=== PATIENT | female | born 1955 | race Caucasian/White ===

== ENCOUNTER → 2017-01-28 11:06 | Outpatient (CLI) | payer BC ==
--- NOTE | ~2017-01-28 | HEMODYNAMI ---
PATIENT:MURPHY PRADHAN MEDICAL RECORD: [id number] : 53 LOCATION:[facility] ADMISSION DATE: 01/28/17 Generatedon:01/28/201714:45 Patient name: MURPHY PRADHAN Patient #: [id number] SSN: : 1955 Date of study: 01/28/2017 Page: Of Hemodynamic Procedure Report Patient Data Patient Demographics Procedure consent was obtained First Name: MURPHY Gender: Female Last Name: CAROLYNN : 1955 Middle Initial: DARIA Age: 61 year(s) Patient #: [id number] Race: Unknown Additional ID: [id number] Contact details [address]: [address] [place] [address] [facility] State: [place] City: [place] Zip code: [address] Admission Admission Data Admission Date: 01/28/2017 Admission Time: 11:06 Procedure Procedure Types Cath Procedure Diagnostic Procedure LHC LHC w/Coronaries PCI Procedure SVG-BMS/APURVA Initial Miscellaneous Procedures Moderate Sedation up to 15 minutes Procedure Description Procedure Date Procedure Date: 01/28/2017 Procedure Start Time: 14:05 Procedure End Time: 14:40 Procedure Staff Name Function Morales Rojas MD Performing Physician Anabella Moreland RT Scrub Michael Barahona RN Nurse Amrita House RT Monitor Procedure Data Cath Procedure Fluoroscopy Diagnostic fluoroscopy Total fluoroscopy Time: 8.7 time: 8.7 min min Diagnostic fluoroscopy Total fluoroscopy dose: dose: 1776 mGy 1776 mGy Entry Location Entry Primary Successful Side Size Upsize Upsize Entry Closure Succes sful Closure Location (Fr) 1 (Fr) 2 (Fr) Remarks Device Remarks Femoral Right 5 Fr Exoseal artery Estimated blood loss: 10 ml Diagnostic catheters Device Type Used For End Catheter Placement Cordis 5Fr JL 4.0 Procedure Catheter (MP) Cordis 5Fr 3DRC Catheter Procedure (MP) Diagnostic Infinity 5Fr Procedure AR MOD Catheter Diagnostic Infinity 5Fr Procedure IM catheter Cordis 5Fr Pigtail Procedure Catheter (MP) Procedure Complications No complications Procedure Medications Medication Administration Route Dosage Oxygen NC 2 l/min Heparin Flush Bag added to field 2 bags (1000units/500ml NS) 0.9% NaCl I.V. 100 ml/hr Fentanyl I.V. 50 mcg Versed I.V. 1 mg Fentanyl I.V. 50 mcg Versed I.V. 1 mg Fentanyl I.V. 50 mcg Versed I.V. 1 mg Fentanyl I.V. 50 mcg Versed I.V. 1 mg Heparin Bolus I.V. 49141 units Brilinta P.O. 180 mg Hemodynamics Rest Heart Rate: 94 (bpm) Pressure Samples Time Site Value (mmHg) Purpose Heart Use Rate(bpm) 14:18 LV 135/8,20 Snapshot 94 14:18 AO 132/74(99) Pullback 98 14:18 LV 150/14,30 Pullback 98 Gradients Valve Time Site 1 Site 2 Mean SEP/DFP Peak To Heart Use (mmHg) (sec/min) Peak Rate (mmHg) (bpm) Aortic 14:18 LV AO 15 19 18 98 150/14,30 132/74(99) Calculations Valve P-P Mean Valve Index Valve Source Name Gradient Area Flow (cm2) Aortic 18 15 18 15 Snapshots Pre Cath Intra NCS Post Cath Vital Signs Time Heart Resp SPO2 etCO2 NIBP (mmHg) Rhythm Pain Sedation Rate (ipm) (%) (mmHg) Status Level (bpm) 13:46:57 89 19 100 30.8 144/91(115) NSR 0 (11) 10(A) , No pain 13:51:13 88 17 98 22.5 139/86(118) NSR 0 (11) 10(A) , No pain 13:55:39 91 18 94 35.3 128/65(89) NSR 0 (11) 10(A) , No pain 13:59:55 87 18 96 28.5 133/85(109) NSR 0 (11) 10(A) , No pain 14:04:07 90 18 95 39.1 130/82(101) NSR 0 (11) 10(A) , No pain 14:08:23 87 17 96 41.2 130/77(102) NSR 0 (11) 9(A) , No pain 14:12:35 93 16 96 41.3 130/81(105) NSR 0 (11) 9(A) , No pain 14:16:53 96 17 95 34.5 133/78(109) NSR 0 (11) 9(A) , No pain 14:21:11 97 16 94 39.2 125/82(102) NSR 0 (11) 9(A) , No pain 14:25:27 94 18 94 38.3 127/77(98) NSR 0 (11) 9(A) , No pain 14:29:41 96 19 95 38.3 124/86(102) NSR 0 (11) 9(A) , No pain 14:33:53 99 19 94 36.8 138/88(104) NSR 0 (11) 10(A) , No pain 14:38:05 93 17 95 38.3 134/83(101) NSR 0 (11) 10(A) , No pain Medications Time Medication Route Dose Verified Delivered Reason Notes Effectiveness by by 13:46:35 Oxygen NC 2 Morales Michael Per physician l/min Bob Barahona RN 13:46:45 Heparin Flush added 2 Morales Michael used for Bag to bags Bob Barahona rn procedure (1000units/500ml field NS) 13:46:54 0.9% NaCl I.V. 100 Morales Michael Per physician ml/hr Bob Barahona RN 14:00:14 Fentanyl I.V. 50 Morales Michael for sedation mcg Bob Barahona RN 14:00:21 Versed I.V. 1 mg Morales Michael for sedation Bob Barahona RN 14:04:04 Fentanyl I.V. 50 Morales Michael for sedation mcg Bob Barahona RN 14:04:07 Versed I.V. 1 mg Morales Michael for sedation Bob Barahona RN 14:06:27 Fentanyl I.V. 50 Morales Michael for sedation mcg Bob Barahona RN 14:06:30 Versed I.V. 1 mg Morales Michael for sedation Bob Barahona RN 14:22:44 Fentanyl I.V. 50 Morales Michael for sedation mcg Bob Barahona RN 14:22:47 Versed I.V. 1 mg Morales Michael for sedation Bob Barahona RN 14:22:57 Heparin [place]us [place].V. 06503 Morales Michael for units Bob Barahona RN anticoagulation 14:41:41 Brilinta P.O. 180 Morales Rodriguez for mg Bob Barahona RN antiplatelet therapy Procedure Log Time Note 13:26:46 Michael Barahona RN sent for patient. Start room use. 13:30:03 Diagnostic Cath Status : Elective 13:36:47 Time tracking: Regular hours 13:36:53 Plan of Care:Hemodynamics will remain stable., Cardiac rhythm will remain stable., Comfort level will be maintained., Respiratory function will remain adequate., Patient/ family verbilizes understanding of procedure., Procedure tolerated without complication., Recovers from procedure without complications.. 13:37:59 Patient received from Pre/Post Procedure Room to CCL 2 Alert and oriented. Tansferred to table in Supine position. 13:38:01 Warm blankets applied, and berto hugger turned on for patient comfort. 13:38:02 Correct patient and procedure confirmed by team. 13:38:08 Signed procedure consent form obtained from patient. 13:38:29 H&P Date Dictated: 01/22/2017 Within 30 days and on chart.. 13:38:31 Pre-procedure instructions explained to patient. 13:38:33 Family in waiting room. 13:38:36 Patient NPO since Midnight. 13:45:44 Vital chart was started 13:46:35 Oxygen 2 l/min NC was administered by Michael Barahona RN; Per physician; 13:46:45 Heparin Flush Bag (1000units/500ml NS) 2 bags added to field was administered by Michael Barahona RN; used for procedure; 13:46:54 0.9% NaCl 100 ml/hr I.V. was administered by Michael Barahona RN; Per physician; 13:53:04 Is the patient allergic to Iodine/contrast media? No. 13:53:05 Was the patient premedicated? Yes 13:53:06 Is patient on blood thinner?No 13:53:08 Patient diabetic? Yes. 13:53:10 If diabetic: On Metformin? Yes 13:53:14 If on Metformin: Last Dose? 01/26/2017 13:53:25 Snore? Yes 13:53:28 Sleep apnea? No 13:53:42 Dentures? No ? 13:53:49 Patient pain scale 0/10 ?. 13:54:02 IV patent on arrival in left forearm with 0.9% NaCl at [facility]. 13:54:10 Lab results completed and on chart. 13:54:16 Right groin area was prepped with chlora-prep and draped in sterile fashion 13:54:18 Alarms reviewed by R. N. 13:54:19 Sharps counted by scrub and verified by R.N. 13:54:21 Physician paged 13:58:53 Physician arrived 13:58:55 --------ALL STOP TIME OUT------ 13:58:56 Final Timeout: patient, procedure, and site verified with staff and physician. All members of the team are in agreement. 13:59:01 Right groin site verified by team. 13:59:05 Sedation plan: IV Moderate Sedation Versed, Fentanyl 13:59:19 Physical assessment completed. ASA score P 2 - A patient with mild systemic disease as per Morales Rojas MD. 14:00:14 Fentanyl 50 mcg I.V. was administered by Michael Barahona RN; for sedation; 14:00:21 Versed 1 mg I.V. was administered by Michael Barahona RN; for sedation; 14:04:04 Fentanyl 50 mcg I.V. was administered by Michael Barahona RN; for sedation; 14:04:07 Versed 1 mg I.V. was administered by Michael Barahona RN; for sedation; 14:04:49 Zero performed for pressure channel P1 14:05:27 Procedure started. 14:05:28 Full Disclosure recording started 14:05:54 Local anesthetic to right femoral artery with Lidocaine 2% by Morales Rojas MD.INITIAL ACCESS ONLY 14:06:14 A 5 Fr sheath was inserted into the Right Femoral artery 14:06:27 Fentanyl 50 mcg I.V. was administered by Michael Barahona RN; for sedation; 14:06:30 Versed 1 mg I.V. was administered by Michael Barahona RN; for sedation; 14:07:46 Use device set Femoral Dx 14:07:48 Acist Syringe opened to sterile field. 14:07:48 Bag Decanter opened to sterile field. 14:07:49 Medline Cath Pack opened to sterile field. 14:07:49 Terumo 5Fr [place] Sheath opened to sterile field. 14:07:49 St Umberto 260cm J .035 wire opened to sterile field. 14:07:51 Acist Hand Control opened to sterile field. 14:07:51 Acist Manifold opened to sterile field. 14:07:52 Diagnostic Infinity 5Fr Multipack catheter opened to sterile field. 14:07:53 Tegaderm 4 x 4 opened to sterile field. 14:08:09 A Cordis 5Fr JL 4.0 Catheter (MP) was advanced over the wire and used for Procedure. 14:08:47 LCA angiography performed. 14:10:06 Catheter removed. 14:10:20 A Cordis 5Fr 3DRC Catheter (MP) was advanced over the wire and used for Procedure. 14:10:38 RCA angiography performed. 14:11:07 SVG to RCA angiography performed. 14:12:48 Catheter removed. 14:13:08 A Diagnostic Infinity 5Fr AR MOD Catheter was advanced over the wire and used for Procedure. 14:14:11 Catheter removed. 14:16:03 A Diagnostic Infinity 5Fr IM catheter was advanced over the wire and used for Procedure. 14:16:09 QUIÑONES to LAD angiography performed. 14:17:58 A Cordis 5Fr Pigtail Catheter (MP) was advanced over the wire and used for Procedure. 14:18:35 EF : 50 % 14:18:44 Sharif BMW [place] 2 J-tip 300cm 0.014 guide wir opened to sterile field. 14:18:45 [employer] BasixCompak Inflation Kit opened to sterile field. 14:18:46 Terumo 6Fr [place] Sheath opened to sterile field. 14:18:49 Proceeding to intervention. 14:19:30 Medtronic Launcher 6Fr AR 1.0 guide catheter opened to sterile field. 14:19:40 6 Fr AR1 guide catheter was inserted over the wire 14:19:46 BMW wire advanced. 14:22:44 Fentanyl 50 mcg I.V. was administered by Michael Barahona RN; for sedation; 14:22:47 Versed 1 mg I.V. was administered by Michael Barahona RN; for sedation; 14:22:57 Heparin Bolus 56184 units I.V. was administered by Michael Barahona RN; for anticoagulation; 14:23:36 High Pressure Extension Tubing (Rojas) opened to sterile field. 14:25:37 Inflation number: 1 A Euphora 3.0 x 20 Balloon was prepped and advanced across the Aorta Right -> Prox RCA, then inflated to 10 KIM for 0:20 (min:sec). 14:26:42 Inflation number: 2 The Euphora 3.0 x 20 Balloon was reinflated across the Aorta Right -> Prox RCA, to 12 KIM for 0:35 (min:sec). 14:28:03 Inflation number: 3 The Euphora 3.0 x 20 Balloon was reinflated across the Aorta Right -> Prox RCA, to 14 KIM for 0:37 (min:sec). 14:30:58 Inflation number: 4 The Euphora 3.0 x 20 Balloon was reinflated across the Aorta Right -> Prox RCA, to 16 KIM for 0:35 (min:sec). 14:32:34 Balloon removed over the wire. 14:34:58 Inflation Number: 5 A Lewellen OTW 3.5 x 18 stent was prepped and advanced across the Aorta Right -> Prox RCA. The stent was deployed at 13 KIM for 0:24 (min:sec). 14:35:46 Stent catheter was removed intact over wire. 14:35:47 Wire removed. 14:35:48 Guide catheter removed. 14:36:15 Sheath removed intact; hemostasis achieved with Exoseal to the Right Femoral artery. 14:36:20 Procedure ended.(Physican Out) 14:36:33 Fluoroscopy time 08.70 minutes. 14:37:19 Fluoroscopy dose: 1776 mGy 14:37:19 Flurop Dose total: 1776 14:37:27 Contrast amount:Isovue 300 8.7ml. 14:37:44 Cordis 6Fr Exoseal opened to sterile field. 14:38:30 Insertion/operative site no bleeding no hematoma. 14:38:38 Post right femoral artery:stable 14:38:43 Post Procedure Pulses reassessed and unchanged 14:38:46 Post-procedure physical assessment completed. ASA score P 2 - A patient with mild systemic disease as per Morales Rojas MD. 14:38:50 Post procedure rhythm: unchanged. 14:38:54 Estimated blood loss: 10 ml 14:38:56 Post procedure instruction explained to patient.Patient verbalizes understanding. 14:39:01 Patient needs reinforcement of post procedure teaching. 14:39:28 Procedure type changed to Cath procedure, Diagnostic procedure, LHC, LHC w/Coronaries, PCI procedure, SVG-BMS/APURVA Initial, Miscellaneous Procedures, Moderate Sedation up to 15 minutes 14:39:31 Procedure and supply charges have been captured, reviewed, submitted and are correct. 14:40:15 Procedure Complication : No complications 14:40:20 Vital chart was stopped 14:40:33 See physician's report for complete and final results. 14:40:38 Report given to Pre/Post Procedure Room. 14:40:45 Patient transfered to Pre/Post Procedure Room with Stretcher. 14:40:50 Procedure ended. 14:40:50 Full Disclosure recording stopped 14:40:55 End room use (Document Last) 14:41:15 ACC-PCI Only Patient was given prescriptions, or instructed by Morales Rojas MD to start/continue the following medications upon discharge: Plavix 14:41:41 Brilinta 180 mg P.O. was administered by Michael Barahona RN; for antiplatelet therapy; Intervention Summary Intervention Notes Time ActionType Lesion and Equipment Action# Pressure Duration Attributes Used 14:25:37 Inflate Aorta Right Euphora 1 10 00:20 balloon -> Prox RCA 3.0 x 20 Balloon 14:26:42 Reinflate Aorta Right Euphora 2 12 00:35 balloon -> Prox RCA 3.0 x 20 Balloon 14:28:03 Reinflate Aorta Right Euphora 3 14 00:37 balloon -> Prox RCA 3.0 x 20 Balloon 14:30:58 Reinflate Aorta Right Euphora 4 16 00:35 balloon -> Prox RCA 3.0 x 20 Ball[address] 14:34:58 [address] stent Aorta Right David OTW 5 13 00:24 -> Prox RCA 3.5 x 18 stent Device Usage Item Name Manufacture Quantity Catalog Hospital Part Current Minima l Lot# / Number Charge Number Stock Stock Serial# Code [facility] 44831 [id number] 805228 826500 20 Syringe [employer] Inc Bag Microtek 1 2002S 633159 16283 492878 5 T[employer] Medline Cardinal 1 [id number] 306381 77605 846113 5 Brainsway Terumo 5Fr Terumo 1 [id number] 626556 694329 102289 [address] Umberto 1 888117 476189 488567 336447 30 260cm J .035 wire Acist Hand Acist 1 63228 345764 968465 136972 5 Control [employer] Systems Inc Acist Acist 1 02784 480254 793743 407349 5 Manifold Medical Systems Inc Diagnostic Cardinal 1 [id number] 222635 27850 484041 30 Infinity Health 5Fr Multipack catheter Tegaderm 4 3M 1 1626W 406478 027149 742568 5 x 4 Cordis 5Fr Cardinal 1 [id number] 5 JL 4.0 Health Catheter (MP) Cordis 5Fr Cardinal 1 165537 5 3DRC Health Catheter (MP) Diagnostic Cardinal 1 [id number] 660372 947556 486003 15 [facility] 5Fr AR MOD Catheter Diagnostic Cardinal 1 [id number] 633671 882413 317589 5 [facility] 5Fr IM catheter Cordis 5Fr Cardinal 1 480671 5 Pigtail Health Catheter (MP) Sharif BMW Sharif 1 [id number] 087127 476149 425767 5 [place] 2 Vascular J-tip 300cm 0.014 guide wir Merit Merit 1 [id number] 873898 720249 803330 15 [employer] Medical Inflation Kit Terumo 6Fr Terumo 1 [id number] 382747 826449 737565 40 [place] Sheath Medtronic Medtronic 1 [id number] 806915 89356 148991 1 Launcher 6Fr AR 1.0 guide catheter High Merit 1 [id number] 191199 48732 129284 10 Pressure Medical Extension Tubing (Rojas) Euphora 3.0 Medtronic 1 [id number] 332289 359811 197645 5 [id number] x 20 Balloon Lewellen OTW Medtronic 1 [id number] 148107 2756925 941162 5 [id number] 3.5 x 18 stent Cordis 6Fr Cardinal 1 [id number] 545411 068386 072225 10 [facility] [employer] Signature Audit [place] Stage Time Signature Unsigned Intra-Procedure 01/28/2017 Amrita House 2:45:31 PM RT(R) Signatures Monitor : Amrita House Signature : RT Date : Time : [facility] [address] [place] [address]
[~2017-01-28 11:06] MED LIST: ASPIRIN 81 MG E81 MG PO; ASPIRIN325 MG PO; BETAPACE 80 MG80 MG PO; BIOTIN5 MG PO; BRILINTA90 MG PO; CHLORASEPTIC S180 ML MM; CINNAMON500 MG PO; CONTRAVE PO; COZAAR50 MG PO; FISH OIL 1,2001 CA1 PO; FOLIC ACID0.8 MG PO; GLUCOPHAGE1000 MG PO; GLUCOPHAGE500 MG; GLUCOPHAGE500 MG PO; K-DUR20 MEQ PO; LASIX40 MG PO; LOPRESSOR25 MG PO; LOSARTAN POTASS25 MG PO; MULTI-DAY VITAM1 TAB PO; NORCO 5/325 TAB1 TA1; PLAVIX75 MG PO; PRAVACHOL20 MG PO; PROTONIX40 MG PO; VITAMIN D2000 UNIT PO
[2017-01-28 11:58] LABS: BASOPHILS 0 % (0-2); EOSINOPHILS 0 % (0-7); HEMATOCRIT 36.1 % (36.0-48.0); IMMATURE GRANULOCYTES 0.4 % (0-5); LYMPHOCYTES 7.2 % (15-50); MCHC 33.2 g/dL (31.0-37.0); MCV 84.3 fL (80.0-100.0); MEAN PLATELET VOLUME 9.5 fL (7.4-10.4); MONOCYTES 2.6 % (2-11); NEUTROPHILS 89.8 % (40-80); PLATELET COUNT 232 10x3/uL (130-400); RBC 4.28 10x6/uL (4.00-5.40); RDW 12.9 % (11.5-14.5); WBC 10.7 10x3/uL (4.8-10.8)
[2017-01-28 12:01] VITALS: BP 148/82; BMI 42.3
[2017-01-28 12:10] LABS: ANION GAP 15.4 mmol/L (8-16); CALCIUM 9.1 mg/dL (8.5-10.1); CARBON DIOXIDE 23.6 mmol/L (21.0-32.0); CREATININE - SERUM 1.3 mg/dL (0.6-1.3)
--- NOTE | 2017-01-28 15:00 | NUR ---
1500 RECIEVED TO ROOM VIA STRETCHER FROM INSTRUMENT MAN WITH REPORTS OF ONE STENT TO THE RCA GRAFT. 6 FR EXOSEAL R/GROIN CDI NO BLEEDING NO HEMATOMA NOTED. VSS WITH CHEST PAIN DENIED 1530 RESTING QUIETLY WITH EYES CLOSED VSS R/GROIN CDI NO BLEEDING NO HEMATOMA NOTED.
--- NOTE | 2017-01-28 15:30 | NUR ---
6 FR EXOSEAL R/GROIN CDI NO BLEEDING NO HEMATOMA NOTED. INSTRUCTED PATIENT TO KEEP HEAD FLAT ON PILLOW WITH RLE STRAIGHT. VSS AND CHEST PAIN IS DENIED
--- NOTE | 2017-01-28 16:00 | NUR ---
6 FR EXOSEAL R/GROIN CDI NO BLEEDING NO HEMATOMA NOTED. CHEST PAIN IS DENIED. SANDWICH AND SODA TO BEDSIDE
--- NOTE | 2017-01-28 16:55 | NUR ---
R/GROIN REMAINS CDI NO BLEEDING OR HEMATOMA NOTED PULSES ARE PRESENT AND MARKED. CHEST PAIN IS DENIED. FAMILY AT BEDSIDE
--- NOTE | 2017-01-28 17:43 | NUR ---
REPOSITIONED TO SITTING WITH HOB UP 30 DEGREES R/GROIN CDI NO BLEEDING NO HEMATOMA NOTED.
--- NOTE | 2017-01-28 18:04 | NUR ---
PIV REMOVED WITH DRESSING APPLIED. R/GROIN CDI NO BLEEDING NO HEMATOMA NOTED. VERBAL AND WRITTEN DISCHARGE GONE OVER WITH PATIENT AND FAMILY ALL VERBALIZED UNDERSTANDING. PATIENT UP TO GET DRESSED FOR DISCHARGE HOME
== END | disposition home or self-care (01) ==
LOC: D.CATH 11:06
PROVIDERS: Internal Medicine Cardiovascular Disease
DX: I25.719 Atherosclerosis of autologous vein coronary artery bypass graft(s) with unspecified angina pectoris (principal); I25.119 Atherosclerotic heart disease of native coronary artery with unspecified angina pectoris; T82.855A Stenosis of coronary artery stent, initial encounter; Z01.812 Encounter for preprocedural laboratory examination

== ENCOUNTER 2017-10-07 11:27 | Outpatient (CLI) | payer MEDICAID ==
[~2017-10-07] VITALS: Ht 162.6 cm; Wt 106.8 kg
--- NOTE | ~2017-10-07 | HEMODYNAMI ---
PATIENT:MURPHY PRADHAN MEDICAL RECORD: [id number] : 53 LOCATION:[facility] ADMISSION DATE: 10/07/17 Generatedon:10/07/201715:01 Patient name: MURPHY PRADHAN Patient #: [id number] SSN: [id number] : 1955 Date of study: 10/07/2017 Page: Of Hemodynamic Procedure Report Patient Data Patient Demographics Procedure consent was obtained First Name: MURPHY Gender: Female Last Name: CAROLYNN : 1955 [facility] Initial: DARIA Age: 62 year(s) Patient #: [id number] Race: SSN: [id number] Additional ID: [id number] Contact details [address]: [address] [place] [address] [facility] State: [place] City: [place] Zip code: [address] Admission Admission Data Admission Date: 10/07/2017 Admission Time: 11:27 Arrival Date: 10/07/2017 Arrival Time: 13:30 Admit Source: Other Insurance Payor: Private health insurance Procedure Procedure Types Cath Procedure Diagnostic Procedure C [facility] w/Coronaries w/Grafts Sedation Charges Moderate Sedation up to 15 minutes PCI Procedure AMI/SVG/VARNISHING UNIT TOOL SETTER PTCA or Stent SVG-BMS/APURVA Initial Procedure Description Procedure Date Procedure Date: 10/07/2017 Procedure Start Time: 14:28 Procedure End Time: 14:57 Procedure Staff Name Function Morales Rojas MD Performing Physician Amrita Hosue RT Monitor Anabella Moreland RT Scrub Angel Rosa RN Nurse Procedure Data Cath Procedure Fluoroscopy Diagnostic fluoroscopy Total fluoroscopy Time: 6.2 time: 6.2 min min Diagnostic fluoroscopy Total fluoroscopy dose: dose: 1260 mGy 1260 mGy Contrast Material Contrast Material Type Amount (ml) Isovue 300 103 Entry Location Entry Primary Successful Side Size Upsize Upsize Entry Closure Succes sful Closure Location (Fr) 1 (Fr) 2 (Fr) Remarks Device Remarks Femoral Right 5 Fr 6 Fr Exoseal artery Short Estimated blood loss: 10 ml Diagnostic catheters Device Type Used For End Catheter Placement MULTIPACK JL 4.0 5Fr Procedure catheter DIAGNOSTIC AR MOD 5Fr Catheter ([id number]) DIAGNOSTIC IMT 5Fr Procedure Catheter ([id number]) MULTIPACK Pigtail 5 Fr Ventriculography catheter Procedure Complications No complications Procedure Medications Medication Administration Route Dosage 0.9% NaCl I.V. 100 ml/hr Oxygen etCO2 Nasal cannula 2 l/min Heparin Flush Bag added to field 2 bags (1000units/500ml NS) Lidocaine 2% added to field 20 Versed I.V. 2 mg Fentanyl I.V. 100 mcg Versed I.V. 1 mg Fentanyl I.V. 50 mcg Fentanyl I.V. 50 mcg Heparin Bolus I.V. 22089 units Plavix P.O. 75 mg Hemodynamics Rest Heart Rate: 93 (bpm) Pressure Samples Time Site Value (mmHg) Purpose Heart Use Rate(bpm) 14:39 LV 127/0,11 Snapshot 93 14:40 AO 118/65(90) Pullback 93 14:40 LV 125/0,12 Pullback 93 Gradients Valve Time Site 1 Site 2 Mean SEP/DFP Peak To Heart Use (mmHg) (sec/min) Peak Rate (mmHg) (bpm) Aortic 14:40 LV AO 11 18 7 93 125/0,12 118/65(90) Calculations Valve P-P Mean Valve Index Valve Source Name Gradient Area Flow (cm2) Aortic 7 11 7 11 Snapshots Pre Cath Intra NCS Post Cath Vital Signs Time Heart Resp SPO2 etCO2 NIBP (mmHg) Rhythm Pain Sedation Rate (ipm) (%) (mmHg) Status Level (bpm) 14:15:57 92 39 97 33.6 148/91(118) NSR 0 (11) 10(A) , No pain 14:19:50 89 17 96 36.6 144/90(112) NSR 0 (11) 10(A) , No pain 14:23:42 91 21 92 26.9 141/89(108) NSR 0 (11) 10(A) , No pain 14:27:35 89 18 92 39.6 137/85(114) NSR 0 (11) 10(A) , No pain 14:31:31 89 14 94 11.2 123/82(106) NSR 0 (11) 9(A) , No pain 14:35:55 90 16 93 28.4 128/79(103) NSR 0 (11) 9(A) , No pain 14:39:51 96 19 94 29.2 119/79(100) NSR 0 (11) 9(A) , No pain 14:44:17 91 18 94 34.4 133/76(100) NSR 0 (11) 9(A) , No pain 14:48:14 90 16 92 29.9 137/75(97) NSR 0 (11) 10(A) , No pain 14:52:14 98 13 95 33.7 124/75(94) NSR 0 (11) 10(A) , No pain 14:56:08 92 20 94 30.7 119/75(92) NSR 0 (11) 10(A) , No pain Medications Time Medication Route Dose Verified Delivered Reason Note s Effectiveness by by 14:19:52 0.9% NaCl I.V. 100 Angel Angel Per physician ml/hr Moe Rosa RN RN 14:20:03 Oxygen etCO2 2 Angel Angel Per physician Nasal l/min Moe Rosa cannula RN RN 14:20:16 Heparin Flush added 2 bags Angel Angel used for Bag to Lorigan Lorpepe procedure (1000units/500ml RN RN NS) 14:20:27 Lidocaine 2% added 20ml Angel Angel for local to vial Lorigan Lorigan anesthetic RN RN 14:24:30 Versed I.V. 2 mg Angel Angel for sedation Moe Rosa RN RN 14:25:53 Fentanyl I.V. 100 Angel Angel for sedation mcg Moe Rosa RN RN 14:30:56 Versed I.V. 1 mg Angel Angel for sedation Moe Rosa RN RN 14:31:02 Fentanyl I.V. 50 mcg Angel Angel for sedation Moe Rosa RN RN 14:44:36 Fentanyl I.V. 50 mcg Angel Angel for sedation Moe Rosa RN RN 14:46:18 Heparin Bolus I.V. 10,000 Angel Angel for units Moe Rosa anticoagulation RN RN 14:53:25 Plavix P.O. 75 mg Angel Angel for Moe Rosa antiplatelet RN RN therapy Procedure Log Time Note 14:07:50 Diagnostic Cath Status : Elective 14:08:22 Amrita Harsh RT(R) sent for patient. Start room use. 14:08:23 Time tracking: Regular hours (M-F 7:00 - 5:00) 14:08:26 Plan of Care:Hemodynamics will remain stable., Cardiac rhythm will remain stable., Comfort level will be maintained., Respiratory function will remain adequate., Patient/ family verbilizes understanding of procedure., Procedure tolerated without complication., Recovers from procedure without complications.. 14:08:46 Informed consent obtained and on chart 14:08:54 Admit Source: Other 14:08:56 Arrival Date: 10/07/2017 1:30:00 PM 14:09:10 Insurance Payor : Private health insurance 14:09:17 Patient received from Pre/Post Procedure Room to CCL 2 Alert and oriented. Tansferred to table in Supine position. 14:09:18 Warm blankets applied, and berto hugger turned on for patient comfort. 14:09:18 Correct patient and procedure confirmed by team. 14:09:22 ECG and BP/O2 sat monitors applied to patient. 14:15:08 Vital chart was started 14:15:10 Baseline sample Acquired. 14:15:13 Rhythm: sinus rhythm 14:15:15 Full Disclosure recording started 14:15:18 H&P Date Dictated: 10/07/2017 Within 30 days and on chart., H&P Addendum completed by physician on day of procedure. (MUST COMPLETE FOR ALL OUTPATIENTS). 14:15:20 Pre-procedure instructions explained to patient. 14:15:20 Pre-op teaching completed and patient verbalized understanding. 14:15:22 Family in waiting room. 14:15:25 Patient NPO since Midnight. 14:15:26 Is the patient allergic to Iodine/contrast media? No. 14:15:27 Was the patient premedicated? No 14:15:29 Is patient on blood thinner?Yes 14:15:31 ACC The patient was administered the following blood thiners within the last 24 hours: ACCPlavix 14:19:52 0.9% NaCl 100 ml/hr I.V. was administered by Angel Rosa RN; Per physician; 14:20:03 Oxygen 2 l/min etCO2 Nasal cannula was administered by Angel Rosa RN; Per physician; 14:20:16 Heparin Flush Bag (1000units/500ml NS) 2 bags added to field was administered by Angel Rosa RN; used for procedure; 14:20:27 Lidocaine 2% 20ml vial added to field was administered by Angel Rosa RN; for local anesthetic; 14:20:40 Patient diabetic? Yes. 14:20:42 If diabetic: On Metformin? Yes 14:20:49 If on Metformin: Last Dose? 10/06/2017 14:21:13 Previous problem with sedation/anesthesia? No ? 14:21:15 Snore? Yes 14:21:17 Sleep apnea? No 14:21:30 Airway obstruction? No bronchitis 14:21:38 Patient pain scale 0/10 ?. 14:21:46 IV patent on arrival in left hand with 0.9% NaCl at [facility]. 14:21:51 Lab results completed and on chart. 14:21:56 Right groin area was prepped with chlora-prep and draped in sterile fashion 14:21:57 Alarms reviewed by R. N. 14:21:58 Sharps counted by scrub and verified by R.N. 14:22:00 Physician paged 14:23:05 Physician arrived 14:23:06 --------ALL STOP TIME OUT------ 14:23:07 Final Timeout: patient, procedure, and site verified with staff and physician. All members of the team are in agreement. 14:23:11 Right groin site verified by team. 14:23:15 Physical assessment completed. ASA score P 2 - A patient with mild systemic disease as per Morales Rojas MD. 14:23:19 Sedation plan: IV Moderate Sedation Medication:Versed, Fentanyl 14:23:45 Use device set Femoral Dx 14:23:47 ACIST Syringe (21484) opened to sterile field. 14:23:47 Bag Decanter (2001S) opened to sterile field. 14:23:48 Medline Cath Pack ([id number]) opened to sterile field. 14:23:49 DIAGNOSTIC WIRE .035 260cm J wire (449749) opened to sterile field. 14:23:50 ACIST Hand Control (31676) opened to sterile field. 14:23:50 ACIST Manifold (63283) opened to sterile field. 14:23:54 DIAGNOSTIC Multipack 5Fr catheter set (KP9027) opened to sterile field. 14:23:54 Tegaderm 4 x 4 (1626W) opened to sterile field. 14:23:56 PERCUTANEOUS ENTRY 19GA needle opened to sterile field. 14:24:00 SHEATH Prelude 5Fr 0.035 ([id number]-7J-37-035) opened to sterile field. 14:24:30 Versed 2 mg I.V. was administered by Angel Rosa RN; for sedation; 14::53 Fentanyl 100 mcg I.V. was administered by Angel Rosa RN; for sedation; 14:27:50 Zero performed for pressure channel P1 14:28:04 Procedure started. 14:28:13 Local anesthetic to right femoral artery with Lidocaine 2% by Morales Rojas MD.INITIAL ACCESS ONLY 14:30:20 A 5 Fr sheath was inserted into the Right Femoral artery 14:30:28 Zero performed for pressure channel P1 14:30:33 Zero performed for pressure channel P1 14:30:39 Zero performed for pressure channel P1 14:30:56 Versed 1 mg I.V. was administered by Angel Rosa RN; for sedation; 14:31:02 Fentanyl 50 mcg I.V. was administered by Angel Rosa RN; for sedation; 14:31:04 A MULTIPACK JL 4.0 5Fr catheter was advanced over the wire and used for Procedure. 14:31:10 LCA angiography performed. 14:32:10 Catheter removed. 14:34:41 A DIAGNOSTIC AR MOD 5Fr Catheter ([id number]) was advanced over the wire and used for . 14:34:57 SVG to RCA angiography performed. 14:35:01 Catheter removed. 14:35:20 A DIAGNOSTIC IMT 5Fr Catheter ([id number]) was advanced over the wire and used for Procedure. 14:35:34 QUIÑONES to LAD angiography performed. 14:38:23 Catheter removed. 14:39:33 A MULTIPACK Pigtail 5 Fr catheter was advanced over the wire and used for Ventriculography. 14:40:06 EF : 55 % 14:40:24 Catheter removed. 14:43:00 Proceeding to intervention. 14:44:36 Fentanyl 50 mcg I.V. was administered by Angel Rosa RN; for sedation; 14:44:49 INFLATOR Merit BasixCompak (RL4536) opened to sterile field. 14:44:50 TUBING High Pressure Extension Tubing (Rojas) ([id number]) opened to sterile field. 14:44:51 SHEATH 6Fr Prelude ([id number]) opened to sterile field. 14:45:10 Sheath upsized to a 6 Fr Short. 14:45:24 6 Fr AR1 guide catheter was inserted over the wire 14:46:18 Heparin Bolus 10,000 units I.V. was administered by Angel Rosa RN; for anticoagulation; 14:46:21 GUIDE 6FR AR 1.0 catheter (GT8XM48) opened to sterile field. 14:47:00 BMW 300cm Clemmons 2 J wire ([id number]) opened to sterile field. 14:50:16 Inflate balloon Inflation number: 1 A EMERGE OTW 3.0 x 15 balloon ([id number]) was prepped and advanced across the Aorta Left -> Prox RCA, then inflated to 14 KIM for 0:13 (min:sec). 14:51:10 Inflation number: 2 The EMERGE OTW 3.0 x 15 balloon ([id number]) was reinflated across the Aorta Left -> Prox RCA, to 14 KIM for 0:35 (min:sec). 14:51:57 EXOSEAL 6Fr (EX600) opened to sterile field. 14:52:11 Balloon removed over the wire. 14:52:11 Wire removed. 14:52:21 Sheath removed intact; hemostasis achieved with Exoseal to the Right Femoral artery. 14:52:28 Procedure ended.(Physican Out) 14:52:56 Fluoroscopy time 06.20 minutes. 14:53:01 Fluoroscopy dose: 1260 mGy 14:53:01 Flurop Dose total: 1260 14:53:05 Contrast amount:Isovue 300 103ml. 14:53:07 Sharps counted by scrub and verified by R.N. 14:53:25 Plavix 75 mg P.O. was administered by Angel Rosa RN; for antiplatelet therapy; 14:53:34 Insertion/operative site no bleeding no hematoma. 14:53:38 Post right femoral artery:stable 14:55:00 Post Procedure Pulses reassessed and unchanged 14:55:03 Post procedure rhythm: unchanged. 14:55:06 Estimated blood loss: 10 ml 14:55:07 Post procedure instruction explained to patient.Patient verbalizes understanding. 14:56:10 Procedure type changed to Cath procedure, Diagnostic procedure, LHC, LHC w/Coronaries w/Grafts, Sedation Charges, Moderate Sedation up to 15 minutes, PCI procedure, AMI/SVG/VARNISHING UNIT TOOL SETTER PTCA or Stent, SVG-BMS/APURVA Initial 14:56:11 Procedure and supply charges have been captured, reviewed, submitted and are correct. 14:56:43 Procedure Complication : No complications 14:56:59 Vital chart was stopped 14:57:00 See physician's report for complete and final results. 14:57:02 Report given to Pre/Post Procedure Room. 14:57:06 Patient transfered to Pre/Post Procedure Room with Stretcher. 14:57:09 Procedure ended. 14:57:09 Full Disclosure recording stopped 14:57:12 End room use (Document Last) Intervention Summary Intervention Notes Time ActionType Lesion and Equipment Action# Pressure Duration Attributes Used 14:50:16 Inflate Aorta Left EMERGE OTW 1 14 00:13 balloon -> Prox RCA 3.0 x 15 balloon ([id number]) 14:51:10 Reinflate Aorta Left EMERGE OTW 2 14 00:35 balloon -> Prox RCA 3.0 x 15 balloon ([id number]) Device Usage Item Name Manufacture Quantity Catalog Number Hospital Part Current Minimal Lot# / Charge Number Stock Stock Serial# Code ACIST Syringe Acist 1 89455 933895 067678 127002 20 (98319) Medical Systems Inc Bag Decanter Microtek 1 2001S 571017 34175 689606 5 () Medical Inc. Medline Cath Cardinal 1 [id number] 878425 99519 846747 5 Pack Health ([id number]) DIAGNOSTIC WIRE St Umberto 1 380228 174353 269954 712877 30 .035 260cm J wire (972038) ACIST Hand Acist 1 64799 440304 419388 863329 5 Control (90176) Medical Systems Inc ACIST Manifold Acist 1 80327 962521 343410 690605 5 (61168) Medical Systems Inc DIAGNOSTIC Cardinal 1 PU7033 931171 98407 355104 30 Multipack 5Fr Health catheter set (SM2791) Tegaderm 4 x 4 3M 1 1626W 875457 059700 743623 5 (1626W) PERCUTANEOUS Cook Medical 1 H43829 311314 804668 5 ENTRY 19GA needle SHEATH Prelude Merit 1 [id number]-3E-[id number] 744676 658068 146879 5 5Fr 0.035 Medical (AII-1K-16-035) MULTIPACK JL Cardinal 1 992685 5 4.0 5Fr Health catheter DIAGNOSTIC AR Cardinal 1 [id number] 752917 558644 324759 15 MOD 5Fr Health Catheter (208333G) DIAGNOSTIC IMT Laramie 1 [id number] 995353 038553 19974 5 5Fr Catheter Scientific ([id number]) MULTIPACK Cardinal 1 668972 5 Pigtail 5 Fr Health catheter INFLATOR Merit Merit 1 XG4049 999524 436964 944962 15 BasixScrybe Medical (TV4424) TUBING High Merit 1 [id number] 518656 60879 514259 10 Pressure Medical Extension Tubing (Rojas) ([id number]) SHEATH 6Fr Merit 1 [id number] 502735 829891 768103 5 Prelude Medical ([id number]) GUIDE 6FR AR Medtronic 1 GL4EX92 103353 83617 241882 1 1.0 catheter (JY4WS73) BMW 300cm Sharif 1 [id number] 137218 786146 726018 5 Clemmons 2 J Vascular wire ([id number]) EMERGE OTW 3.0 Laramie 1 [id number] 894881 471992 973970 5 [id number] x 15 balloon Scientific ([id number]) EXOSEAL 6Fr Cardinal 1 EX600 388500 125063 250979 10 (EX600) Health Signature Audit [place] Stage Time Signature Unsigned Intra-Procedure 10/07/2017 Amrita House 3:01:09 PM RT(R) Signatures Monitor : Amrita House Signature : RT Date : Time : [facility] [address] [place] [address]
[2017-10-07] MEDS ORDERED: PLAVIX75 MG PO (12:19)
[2017-10-07] MEDS ORDERED: SINGULAIR10 MG PO (12:20)
[2017-10-07] MEDS ORDERED: MAGNESIUM OXID250 MG PO (12:23)
[2017-10-07] MEDS ORDERED: ZOCOR40 MG PO (12:23)
[2017-10-07] MEDS ORDERED: GLUCOTROL 5 MG T5 MG PO (12:24)
[2017-10-07] MEDS ORDERED: FUROSEMIDE40 MG PO (12:25)
[2017-10-07 12:28] VITALS: BP 154/82; BMI 40.4
[2017-10-07 12:32] LABS: BASOPHILS 0 % (0-2); EOSINOPHILS 0.1 % (0-7); HEMATOCRIT 37.3 % (36.0-48.0); HEMOGLOBIN 12.4 g/dL (12-16); IMMATURE GRANULOCYTES 0.3 % (0-5); LYMPHOCYTES 9.4 % (15-50); MCH 28.1 pg (26.0-34.0); MCHC 33.2 g/dL (31.0-37.0); MCV 84.4 fL (80.0-100.0); MEAN PLATELET VOLUME 9.1 fL (7.4-10.4); MONOCYTES 1.1 % (2-11); NEUTROPHILS 89.1 % (40-80); PLATELET COUNT 229 10x3/uL (130-400); RBC 4.42 10x6/uL (4.00-5.40); RDW 13.3 % (11.5-14.5); WBC 9.3 10x3/uL (4.8-10.8)
[2017-10-07 12:47] LABS: ANION GAP 14.3 mmol/L (8-16); CALCIUM 9.1 mg/dL (8.5-10.1); CARBON DIOXIDE 27.7 mmol/L (21.0-32.0); CREATININE - SERUM 1.4 mg/dL (0.6-1.3)
[2017-10-07 23:26] LABS: HEMATOCRIT 34.7 % (36.0-48.0); HEMOGLOBIN 11.5 g/dL (12-16); LYMPHOCYTES 12.3 % (15-50); MCH 27.4 pg (26.0-34.0); MCHC 33.1 g/dL (31.0-37.0); MCV 82.8 fL (80.0-100.0); MEAN PLATELET VOLUME 8.6 fL (7.4-10.4); NEUTROPHILS 85.6 % (40-80); PLATELET COUNT 253 10x3/uL (130-400); RBC 4.19 10x6/uL (4.00-5.40); RDW 13.2 % (11.5-14.5); WBC 10.1 10x3/uL (4.8-10.8)
[2017-10-08 01:02] VITALS: BP 126/75
[2017-10-08 01:50] VITALS: BP 126/75; Ht 162.6 cm; Wt 106.8 kg
[2017-10-08 06:12] VITALS: BP 96/48
[2017-10-08 08:21] VITALS: BP 105/49
[2017-10-08 08:22] LABS: BASOPHILS 0 % (0-2); EOSINOPHILS 0 % (0-7); HEMATOCRIT 32.5 % (36.0-48.0); HEMOGLOBIN 10.6 g/dL (12-16); IMMATURE GRANULOCYTES 0.3 % (0-5); LYMPHOCYTES 12.2 % (15-50); MCH 27.8 pg (26.0-34.0); MCHC 32.6 g/dL (31.0-37.0); MEAN PLATELET VOLUME 8.7 fL (7.4-10.4); MONOCYTES 6.5 % (2-11); PLATELET COUNT 205 10x3/uL (130-400); RBC 3.81 10x6/uL (4.00-5.40); RDW 13.8 % (11.5-14.5); WBC 11.7 10x3/uL (4.8-10.8)
[2017-10-08 08:29] LABS: MCV 85.3 fL (80.0-100.0)
== END 2017-10-08 10:44 | disposition home or self-care (01) ==
LOC: D.CATH 11:27 → D.M2 20:40 → D.CATH 10-08 10:44
PROVIDERS: Internal Medicine Cardiovascular Disease
DX: T82.855A Stenosis of coronary artery stent, initial encounter (principal); Y83.8 Other surgical procedures as the cause of abnormal reaction of the patient, or of later complication, without mention of misadventure at the time of the procedure; I25.110 Atherosclerotic heart disease of native coronary artery with unstable angina pectoris; I10 Essential (primary) hypertension

== ENCOUNTER → 2018-05-27 11:38 | Outpatient (CLI) | payer MEDICAID ==
[2017-10-08 01:50] VITALS: BMI 40.4
[~2018-05-27 11:38] MED LIST changes: +FUROSEMIDE40 MG PO; +GLUCOTROL 5 MG T5 MG PO; +MAGNESIUM OXID250 MG PO; +SINGULAIR10 MG PO; +ZOCOR40 MG PO
== END | disposition home or self-care (01) ==
LOC: D.HCCARDIO 11:38
DX: I25.10 Atherosclerotic heart disease of native coronary artery without angina pectoris (principal)

== ENCOUNTER 2018-06-08 10:55 | Outpatient (CLI) | payer MEDICAID ==
[~2018-06-08] VITALS: Ht 162.6 cm; Wt 128.2 kg
--- NOTE | ~2018-06-08 | HEMODYNAMI ---
PATIENT:MURPHY PRADHAN MEDICAL RECORD: [id number] : 53 LOCATION:[facility] ADMISSION DATE: 06/08/18 Generatedon:06/08/201813:41 Patient name: MURPHY PRADHAN Patient #: [id number] SSN: [id number] : 1955 Date of study: 06/08/2018 Page: Of Hemodynamic Procedure Report Patient Data Patient Demographics Procedure consent was obtained First Name: MURPHY Gender: Female Last Name: CAROLYNN : 1955 Middle Initial: DARIA Age: 62 year(s) Patient #: [id number] Race: SSN: [id number] Additional ID: [id number] Contact details Address: [address] [place] [address] [facility] State: [place] City: [place] Zip code: [address] Admission Admission Data Admission Date: 06/08/2018 Admission Time: 10:55 Procedure Procedure Types Cath Procedure Diagnostic Procedure LHC LHC w/Coronaries w/Grafts Procedure Description Procedure Date Procedure Date: 06/08/2018 Procedure Start Time: 13:27 Procedure End Time: 13:40 Procedure Staff Name Function Morales Rojas MD Performing Physician Leland Tafoya RT Monitor Shaye Richter RN Nurse Christal Espino RT Scrub Michael Barahona RN Browning Processor Procedure Data Cath Procedure Fluoroscopy Diagnostic fluoroscopy Total fluoroscopy Time: 2.6 time: 2.6 min min Diagnostic fluoroscopy Total fluoroscopy dose: 312 dose: 312 mGy mGy Contrast Material Contrast Material Type Amount (ml) Isovue 300 73 Entry Location Entry Primary Successful Side Size Upsize Upsize Entry Closure Succes sful Closure Location (Fr) 1 (Fr) 2 (Fr) Remarks Device Remarks Femoral Right 5 Fr Exoseal artery Estimated blood loss: 10 ml Diagnostic catheters Device Type Used For End Catheter Placement DIAGNOSTIC JL 4.0 5Fr Procedure catheter ([id number]) DIAGNOSTIC AR MOD 5Fr Procedure Catheter (906181W) DIAGNOSTIC IM 5Fr Procedure catheter ([id number]) DIAGNOSTIC Pigtail 5Fr Procedure catheter ([id number]) Procedure Complications No complications Procedure Medications Medication Administration Route Dosage 0.9% NaCl I.V. 100 ml/hr Oxygen etCO2 Nasal cannula 2 l/min Lidocaine 2% added to field 20 Heparin Flush Bag added to field 2 bags (1000units/500ml NS) Versed I.V. 2 mg Fentanyl I.V. 50 mcg Versed I.V. 2 mg Fentanyl I.V. 50 mcg Versed I.V. 2 mg Hemodynamics Rest Heart Rate: 90 (bpm) Pressure Samples Time Site Value (mmHg) Purpose Heart Use Rate(bpm) 13:35 LV 139/2,16 Snapshot 95 13:35 AO 128/68(95) Pullback 96 13:35 LV 139/7,23 Pullback 96 Gradients Valve Time Site 1 Site 2 Mean SEP/DFP Peak To Heart Use (mmHg) (sec/min) Peak Rate (mmHg) (bpm) Aortic 13:35 LV AO 11 21 11 96 139/7,23 128/68(95) Calculations Valve P-P Mean Valve Index Valve Source Name Gradient Area Flow (cm2) Aortic 11 11 11 11 Snapshots Pre Cath Intra NCS Post Cath Vital Signs Time Heart Resp SPO2 etCO2 NIBP (mmHg) Rhythm Pain Sedation Rate (ipm) (%) (mmHg) Status Level (bpm) 13:09:45 91 14 99 37.8 137/86(108) NSR 0 (11) 10(A) , No pain 13:14:16 88 11 98 37.1 136/86(113) NSR 0 (11) 10(A) , No pain 13:18:44 88 14 97 12.8 136/83(113) NSR 0 (11) 10(A) , No pain 13:23:13 93 11 98 24.2 132/81(99) NSR 0 (11) 10(A) , No pain 13:27:39 90 12 97 52.2 133/81(102) NSR 0 (11) 10(A) , No pain 13:33:13 94 14 97 43.1 145/88(113) NSR 0 (11) 9(A) , No pain 13:37:43 91 13 96 53.7 134/77(103) NSR 0 (11) 10(A) , No pain Medications Time Medication Route Dose Verified Delivered Reason Notes Eff ectiveness by by 13:08:53 0.9% NaCl I.V. 100 Morales Shaye used for ml/hr Bob Richter medical records manager 13:09:00 Oxygen etCO2 2 Morales Shaye used for Nasal l/min Bob Richter procedure cannula RN 13:09:06 Lidocaine 2% added 20ml Morales Morales for local to vial Bob Rojas MD anesthetic field 13:09:10 Heparin Flush added 2 Morales Morales used for Bag to bags Bob Rojas MD procedure (1000units/500ml field NS) 13:22:45 Versed I.V. 2 mg Morales Shaye for Bob Richter sedation RN 13:22:52 Fentanyl I.V. 50 Morales Shaye for mcg Bob Richter sedation RN 13:26:39 Versed I.V. 2 mg Morales Shaye for Bob Richter sedation RN 13:26:43 Fentanyl I.V. 50 Morales Shaye for mcg Bob Richter sedation RN 13:30:32 Versed I.V. 2 mg Morales Shaye for Bob Richter sedation patient account liaison Log Time Note 12:45:34 Michael Barahona RN sent for patient. Start room use. 13:00:35 Time tracking: Regular hours (M-F 7:00 - 5:00) 13:00:39 Plan of Care:Hemodynamics will remain stable., Cardiac rhythm will remain stable., Comfort level will be maintained., Respiratory function will remain adequate., Patient/ family verbilizes understanding of procedure., Procedure tolerated without complication., Recovers from procedure without complications.. 13:03:06 Patient received from Pre/Post Procedure Room to CCL 3 Alert and oriented. Tansferred to table in Supine position. 13:03:07 Warm blankets applied, and berto hugger turned on for patient comfort. 13:03:07 Correct patient and procedure confirmed by team. 13:03:08 Signed procedure consent form obtained from patient. 13:03:09 ECG and BP/O2 sat monitors applied to patient. 13:08:22 Vital chart was started 13:08:53 0.9% NaCl 100 ml/hr I.V. was administered by Shaye Richter RN; used for procedure; 13:09:00 Oxygen 2 l/min etCO2 Nasal cannula was administered by Shaye Richter RN; used for procedure; 13:09:06 Lidocaine 2% 20ml vial added to field was administered by Morales Rojas MD; for local anesthetic; 13:09:10 Heparin Flush Bag (1000units/500ml NS) 2 bags added to field was administered by Morales Rojas MD; used for procedure; 13:16:35 Baseline sample Acquired. 13:16:40 Rhythm: sinus rhythm 13:17:26 Full Disclosure recording started 13:17:42 H&P Date Dictated: 05/14/2018 Within 30 days and on chart., H&P Addendum completed by physician on day of procedure. (MUST COMPLETE FOR ALL OUTPATIENTS). 13:17:43 Pre-procedure instructions explained to patient. 13:17:44 Pre-op teaching completed and patient verbalized understanding. 13:17:47 Family in patients room. 13:17:48 Patient NPO since Midnight. 13:17:50 Is the patient allergic to Iodine/contrast media? No. 13:18:01 Is patient on blood thinner?No 13:18:03 Patient diabetic? Yes. 13:18:04 If diabetic: On Metformin? Yes 13:18:07 If on Metformin: Last Dose? 06/06/2018 13:18:11 Previous problem with sedation/anesthesia? No ? 13:18:11 Snore? Yes 13:18:13 Sleep apnea? No 13:18:14 Deviated septum? No 13:18:15 Opens mouth fully? Yes 13:18:15 Sticks out tongue? Yes 13:18:18 Airway obstruction? No ? 13:18:20 Dentures? No ? 13:18:29 Pre procedure: right dorsailis pedis pulse 1+ Palpable, but thready & weak; easily obliterated 13:18:32 Patient pain scale 0/10 ?. 13:18:35 IV patent on arrival in left forearm with 0.9% NaCl at [facility]. 13:18:37 Lab results completed and on chart. 13:18:42 Right groin area was prepped with chlora-prep and draped in sterile fashion 13:18:43 Alarms reviewed by R. N. 13:18:44 Sharps counted by scrub and verified by R.N. 13:18:56 Use device set Femoral Dx 13:18:58 Tegaderm 4 x 4 (1626W) opened to sterile field. 13:18:59 ACIST Manifold (30292) opened to sterile field. 13:19:00 ACIST Hand Control (36803) opened to sterile field. 13:19:02 ACIST Syringe (53007) opened to sterile field. 13:19:02 Bag Decanter (2002S) opened to sterile field. 13:19:02 Medline Cath Pack ([id number]) opened to sterile field. 13:19:05 DIAGNOSTIC WIRE .035 260cm J wire (335913) opened to sterile field. 13:19:06 SHEATH 5FR Skidmore (TGL002) opened to sterile field. 13:20:28 --------ALL STOP TIME OUT------ 13:20:28 Final Timeout: patient, procedure, and site verified with staff and physician. All members of the team are in agreement. 13:20:30 Right groin site verified by team. 13:20:34 Fire Safety Assessment: A--An alcohol-based skin anteseptic being used preoperatively., C--Open oxygen or nitrous oxide is being used., D--An ESU, laser, or fiber-optic light is being used. 13:20:36 Physical assessment completed. ASA score P 2 - A patient with mild systemic disease as per Morales Rojas MD. 13:20:40 Sedation plan: IV Moderate Sedation Medication:Versed, Fentanyl 13:22:45 Versed 2 mg I.V. was administered by Shaye Richter RN; for sedation; 13::52 Fentanyl 50 mcg I.V. was administered by Shaye Richter RN; for sedation; 13:26:39 Versed 2 mg I.V. was administered by Shaye Richter RN; for sedation; 13::43 Fentanyl 50 mcg I.V. was administered by Shaye Richter RN; for sedation; 13::22 Procedure started. 13:27:25 Local anesthetic to right femoral artery with Lidocaine 2% by Morales Rojas MD.INITIAL ACCESS ONLY 13:27:49 A 5 Fr sheath was inserted into the Right Femoral artery 13:28:46 A DIAGNOSTIC JL 4.0 5Fr catheter (253998P) was advanced over the wire and used for Procedure. 13:29:14 LCA angiography performed. 13:29:57 Catheter exchanged over wire. 13:30:02 A DIAGNOSTIC AR MOD 5Fr Catheter ([id number]) was advanced over the wire and used for Procedure. 13:30:32 Versed 2 mg I.V. was administered by Shaye Richter RN; for sedation; 13:31:29 SVG to RCA angiography performed. 13:32:43 Catheter exchanged over wire. 13:33:00 A DIAGNOSTIC IM 5Fr catheter ([id number]) was advanced over the wire and used for Procedure. 13:34:03 QUIÑONES to LAD angiography performed. 13:35:13 Catheter removed. 13:35:23 A DIAGNOSTIC Pigtail 5Fr catheter (218702T) was advanced over the wire and used for Procedure. 13:35:50 LV angiography performed. 13:35:52 LV gram done using MUÑOZ 13:35:57 EF : 50 % 13:35:59 LV hemodynamics recorded. 13:36:02 Injector settings: Ml/sec: 10, Volume: 20, 13:36:04 Catheter removed. 13:36:07 EXOSEAL 5Fr (EX500) opened to sterile field. 13:37:11 Sheath removed intact; hemostasis achieved with Exoseal to the Right Femoral artery. 13:37:13 Procedure ended.(Physican Out) 13:38:26 Fluoroscopy time 02.60 minutes. 13:38:31 Fluoroscopy dose: 312 mGy 13:38:31 Flurop Dose total: 312 13:38:34 Contrast amount:Isovue 300 73ml. 13:38:35 Sharps counted by scrub and verified by R.N. 13:38:36 Insertion/operative site no bleeding no hematoma. 13:38:39 Post-op/insertion site Right Femoral artery dressed using a 4 x 4 and Tegaderm. 13:38:43 Post-procedure physical assessment completed. ASA score P 2 - A patient with mild systemic disease as per Morales Rojas MD. 13:38:46 Post procedure rhythm: unchanged. 13:38:48 Estimated blood loss: 10 ml 13:38:50 Post procedure instruction explained to patient.Patient verbalizes understanding. 13:38:50 Patient needs reinforcement of post procedure teaching. 13:39:49 Procedure type changed to Cath procedure, Diagnostic procedure, LHC, LHC w/Coronaries w/Grafts 13:40:04 Procedure and supply charges have been captured, reviewed, submitted and are correct. 13:40:07 Procedure Complication : No complications 13:40:29 Vital chart was stopped 13:40:30 See physician's report for complete and final results. 13:40:32 Report given to Pre/Post Procedure Room. 13:40:40 Patient transfered to Pre/Post Procedure Room with Stretcher. 13:40:42 Procedure ended. 13:40:42 Full Disclosure recording stopped 13:40:49 End room use (Document Last) Device Usage Item Name Manufacture Quantity Catalog Hospital Part Current Minimal L ot# / Number Charge Number Stock Stock Serial# Code Tegaderm 4 3M 1 1626W [id number] 226918 [id number] 5 x 4 (1626W) ACIST Acist 1 53778 306729 683385 002949 5 Manifold Medical (56915) Systems Inc ACIST Hand Acist 1 25257 172709 707590 949678 5 Control Medical (28410) Systems Inc ACIST Acist 1 25617 165603 446425 331110 20 Syringe Medical (11123) Systems Inc Bag Microtek 1 2001S 728914 92910 921272 5 Decanter Medical Inc. () Medline Medline 1 [id number] 973203 51104 383916 5 Cath Pack ([id number]) DIAGNOSTIC St Umberto 1 443068 222012 866985 857869 30 WIRE .035 260cm J wire (100435) SHEATH 5FR Terumo 1 IRI292 732929 908156 143680 5 Skidmore (XQB892) DIAGNOSTIC Cardinal 1 [id number] 338529 805061 524590 10 JL 4.0 5Fr Health catheter (519449O) DIAGNOSTIC Cardinal 1 835252L 371003 124104 253166 15 AR MOD 5Fr Health Catheter (248845G) DIAGNOSTIC Cardinal 1 840019V 544160 604985 029326 5 IM 5Fr Health catheter (816920D) EXOSEAL 5Fr Cardinal 1 EX500 491933 224262 663332 10 (EX500) Health DIAGNOSTIC Cardinal 1 142576W 257151 160113 737506 5 Pigtail 5Fr Health catheter (586601D) Signature Audit [place] Stage Time Signature Unsigned Intra-Procedure 06/08/2018 Leland Tafoya 1:41:06 PM RT(R) Signatures Monitor : Leland Tafoya RT Signature : Date : Time : [place] [address] [place] [address]
[2018-06-08 11:29] VITALS: BP 120/70; Ht 162.6 cm; Wt 128.2 kg
[2018-06-08 11:45] LABS: ANION GAP 17.8 mmol/L (8-16); BASOPHILS 0 % (0-2); CALCIUM 9.3 mg/dL (8.5-10.1); CARBON DIOXIDE 25.4 mmol/L (21.0-32.0); CREATININE - SERUM 1.8 mg/dL (0.6-1.3); EOSINOPHILS 0 % (0-7); HEMATOCRIT 37.3 % (36.0-48.0); HEMOGLOBIN 11.7 g/dL (12-16); IMMATURE GRANULOCYTES 0.4 % (0-5); MCH 25.3 pg (26.0-34.0); MCHC 31.4 g/dL (31.0-37.0); MCV 80.7 fL (80.0-100.0); MEAN PLATELET VOLUME 9.5 fL (7.4-10.4); MONOCYTES 1.2 % (2-11); NEUTROPHILS 89.4 % (40-80); PLATELET COUNT 218 10x3/uL (130-400); POTASSIUM - SERUM 4.2 mmol/L (3.5-5.1); RBC 4.62 10x6/uL (4.00-5.40); RDW 14.4 % (11.5-14.5); WBC 10.4 10x3/uL (4.8-10.8)
--- NOTE | 2018-06-08 13:56 | NUR ---
PT RECEIVED VIA STRETCHER FROM FOOD AND BEVERAGE COORDINATOR FOR RECOVERY. PT DROWSY BUT AROUSABLE TO VERBAL STIMULI. HR NSR RATE 89, BP 112/65, O2 SAT 95 ON ROOM AIR, PLACED ON 2L/NC. 5 FR EXOCELE TO R GROIN, DRESSING CDI NO BLEEDING OR HEMATOMA NOTED. PEDAL PULSES PALPABLE. PT INSTRUCTED ON KEEPING HEAD ON PILLOW AND R LEG STRAIGHT. CALL LIGHT IN REACH. PT DENIES PAIN OR NEEDS AT THIS TIME.
--- NOTE | 2018-06-08 14:10 | NUR ---
PT RESTING COMFORTABLY TALKING WITH FAMILY, R GROIN DRESSING CDI NO BLEEDING OR HEMATOMA NOTED. PEDAL PULSES PALPABLE. CALL LIGHT IN REACH.
--- NOTE | 2018-06-08 14:45 | NUR ---
PT AWAKE, DENIES CHEST PAIN. VSS, DR SUTTON IN AND SPOKE WITH PT AND FAMILY REGARDING PROCDURE RESULTS AND PLAN OF CARE. R GROIN REMAINS CDI NO BLEEDING OR SWELLING. CALL LIGHT IN REACH
--- NOTE | 2018-06-08 14:59 | NUR ---
HOB ELEVATED, SANDWICH AND DRINK SERVED. PT DENIES PAIN OR NAUSEA. VSS. GROIN DRESSING REMAINS CDI NO BLEEDING OR HEMATOMA NOTED. CALL LIGHT IN REACH, FAMILY AT BEDSIDE.
--- NOTE | 2018-06-08 15:35 | NUR ---
DISCHARGE INSTRUCTIONS REVIEWED W PT AND DAUGHTER, BOTH VERBALIZED UNDERSTANDING. R GROIN REMAINS SOFT, DRESSING CDI NO BLEEDING OR SWELLING NOTED.
--- NOTE | 2018-06-08 15:42 | NUR ---
IV REMOVED W CATH INTACT, MONITORS REMOVED FOR DISCHARGE. PT UP TO DRESS.
--- NOTE | 2018-06-08 16:02 | NUR ---
PT AMBULATED TO W/O DIFFICULITY. PT THEN DISCHARGED TO PRIVATE VEHICLE VIA W ALL BELONGINGS.
== END 2018-06-08 16:00 | disposition home or self-care (01) ==
LOC: D.CATH 10:55
PROVIDERS: ATTEND Internal Medicine Cardiovascular Disease
DX: I25.119 Atherosclerotic heart disease of native coronary artery with unspecified angina pectoris (principal); I25.719 Atherosclerosis of autologous vein coronary artery bypass graft(s) with unspecified angina pectoris; T82.855A Stenosis of coronary artery stent, initial encounter; Z01.812 Encounter for preprocedural laboratory examination

== ENCOUNTER 2019-02-10 03:36 | Inpatient (IN) | payer MEDICAID ==
[~2019-02-10] VITALS: Ht 162.6 cm; Wt 127.3 kg
--- NOTE | ~2019-02-10 | HEMODYNAMI ---
PATIENT:MURPHY PRADHAN MEDICAL RECORD: [id number] : 53 [id number] ADMISSION DATE: 02/10/19 Generatedon:02/11/201913:08 Patient name: MURPHY PRADHAN Patient #: [id number] SSN: [id number] : 1955 Date of study: 02/11/2019 Page: Of Hemodynamic Procedure Report Patient Data Patient Demographics Procedure consent was obtained First Name: MURPHY Gender: Female Last Name: CAROLYNN : 1955 [facility] Initial: DARIA Age: 63 year(s) Patient #: [id number] Race: SSN: [id number] Additional ID: [id number] Contact details [address]: [address] [place] [address] [employer] State: [place] City: [place] Zip code: [address] Past Medical History Allergies Allergen Reaction Date Comments Reported Other 02/11/2019 contrast/soap(from allergy betadine)/Povidone-iodine(Betadine) Admission Admission Data Admission Date: 02/10/2019 Admission Time: 6:37 Room #: D.2124 Lab Results Lab Result Date: 02/11/2019 Lab Result Time: 0:00 Biochemistry Name Units Result Min Max BUN mg/dl 32 --(----)-* 7 18 CK-MB ng/ml 91.2 --(----)-* 0 3.6 Creatinine mg/dl 1.7 --(----)-* 0.6 1.3 eGFR ml/min 32 *-(----)-- 90 120 NONAFRICAN Troponin l ng/ml 6.449 --(----)-* 0 0.06 CBC Name Units Result Min Max Hemoglobin g/dl 12.3 *-(----)-- 13.5 17.5 Procedure Procedure Types Cath Procedure Diagnostic Procedure LHC LHC w/Coronaries w/Grafts Sedation Charges Moderate Sedation up to 15 minutes Procedure Description Procedure Date Procedure Date: 02/11/2019 Procedure Start Time: 12:47 Procedure End Time: 13:05 Procedure Staff Name Function Jones Coe MD Performing Physician Sakina Guo RT Monitor Shaye Richter RN Nurse Leland Tafoya RT Scrub Indication Chest pain Procedure Data Cath Procedure Fluoroscopy Diagnostic fluoroscopy Total fluoroscopy Time: 2 time: 2 min min Diagnostic fluoroscopy Total fluoroscopy dose: 690 dose: 690 mGy mGy Contrast Material Contrast Material Type Amount (ml) Isovue 300 61 Entry Location Entry Primary Successful Side Size Upsize Upsize Entry Closure Succes sful Closure Location (Fr) 1 (Fr) 2 (Fr) Remarks Device Remarks Femoral Right 5 Fr Exoseal artery Estimated blood loss: 5 ml Diagnostic catheters Device Type Used For End Catheter Placement MULTIPACK Pigtail 5 Fr LV Angiography catheter MULTIPACK JL 4.0 5Fr Left Coronary catheter Angiography MULTIPACK 3DRC 5Fr Procedure catheter Procedure Complications No complications Procedure Medications Medication Administration Route Dosage Oxygen etCO2 Nasal cannula 2 l/min Lidocaine 2% added to field 20 Heparin Flush Bag added to field 2 bags (1000units/500ml NS) 0.9% NaCl I.V. 100 ml/hr Versed I.V. 2 mg Fentanyl I.V. 100 mcg Fentanyl I.V. 50 mcg Versed I.V. 2 mg Oxygen NRB 15 l/min Narcan I.V. 0.4 mg Hemodynamics Rest Heart Rate: 87 (bpm) Snapshots Pre Cath Intra NCS Post Cath Vital Signs Time Heart Resp SPO2 etCO2 NIBP (mmHg) Rhythm Pain Sedation Rate (ipm) (%) (mmHg) Status Level (bpm) 12:42:35 87 26 98 32.4 Measuring NSR 0 (11) 10(A) , No pain 12:43:57 88 15 97 37.8 Time NSR 0 (11) 10(A) Exceeded , No pain 12:45:54 89 10 98 37.7 136/42(100) NSR 0 (11) 10(A) , No pain 12:50:14 85 19 97 36.2 98/27(38) NSR 0 (11) 10(A) , No pain 12:55:19 97 21 77 0 124/34(76) NSR 0 (11) 10(A) , No pain 12:59:48 94 7 92 0 136/39(102) NSR 0 (11) 10(A) , No pain 13:04:02 96 11 98 42.3 108/37(65) NSR 0 (11) 10(A) , No pain Medications Time Medication Route Dose Verified Delivered Reason Notes Eff ectiveness by by 12:26:30 Oxygen etCO2 2 Jones Shaye used for Nasal l/min Saravanan Richter procedure cannula RN 12:28:29 Lidocaine 2% added 20ml Jones Jones for local to vial Saravanan Coe MD anesthetic field 12:28:38 Heparin Flush added 2 Jones Jones used for Bag to bags Saravanan Coe MD procedure (1000units/500ml field NS) 12:33:38 0.9% NaCl I.V. 100 Jones Shaye used for ml/hr Saravanan Richter vault attendant 12:45:12 Versed I.V. 2 mg Jones Shaye for Saravanan Richter sedation RN 12:45:36 Fentanyl I.V. 100 Jones Shaye for mcg Saravanan Richter sedation RN 12:49:20 Versed I.V. 2 mg Jones Shaye for Saravanan Richter sedation RN 12:49:53 Fentanyl I.V. 50 Jones Shaye for mcg Saravanan Richter sedation RN 12:56:47 Oxygen NRB 15 Jones Shaye for low 02 l/min Saravanan Richter sats RN 12:59:28 Narcan I.V. 0.4 Jones Shaye used for mg Saravanan Richter vault attendant Procedure Log Time Note 12:10:56 Informed consent obtained and on chart 12:11:36 Indication : Chest pain 12:11:44 Procedure Status Elective Heart Cath (OP). 12:11:47 Leland Tafoya RT(R) sent for patient. Start room use. 12:11:51 Time tracking: Regular hours (M-F 7:00 - 5:00) 12:11:58 Plan of Care:Hemodynamics will remain stable., Cardiac rhythm will remain stable., Comfort level will be maintained., Respiratory function will remain adequate., Patient/ family verbilizes understanding of procedure., Procedure tolerated without complication., Recovers from procedure without complications.. 12:17:29 Lab Result : CK-MB 91.2 ng/ml 12:17:29 Lab Result : Troponin l 6.449 ng/ml 12:: Lab Result : BUN 32 mg/dl 12:: Lab Result : Creatinine 1.7 mg/dl 12:: Lab Result : eGFR NONAFRICAN 32 ml/min 12:: Lab Result : Hemoglobin 12.3 g/dl 12:20:44 Patient received from Med II to CCL 2 Alert and oriented. Tansferred to table in Supine position. 12:20:53 Risk of Mortality: 1.3 12:20:58 Risk of blood transfusion: 4.7 12:21:03 Risk of МАРИЯ: 11.5 12:22:37 Patient allergic to Other allergycontrast/soap(from betadine)/Povidone-iodine(Betadine) 12:22:40 Warm blankets applied, and berto hugger turned on for patient comfort. 12:22:41 Correct patient and procedure confirmed by team. 12:22:44 ECG and BP/O2 sat monitors applied to patient. 12:23:00 ACC Patient presents with Unstable Angina CCS Anginal Class 3--Marked limitation of physical activity, angina occurs with ordinary activity.. 12:26:30 Oxygen 2 l/min etCO2 Nasal cannula was administered by Shaye Richter RN ; used for procedure; Verbal order read back and verified. 12:28:29 Lidocaine 2% 20ml vial added to field was administered by Jones Coe MD; for local anesthetic; Verbal order read back and verified. 12:28:38 Heparin Flush Bag (1000units/500ml NS) 2 bags added to field was administered by Jones Coe MD; used for procedure; Verbal order read back and verified. 12:31:36 Full Disclosure recording started 12:31:42 H&P Date Dictated: 02/11/2019 New H&P dictated by physician.. 12:31:43 Pre-procedure instructions explained to patient. 12:31:44 Pre-op teaching completed and patient verbalized understanding. 12:31:45 Family in patients room. 12:31:46 Patient NPO since Midnight. 12:31:52 Is patient on blood thinner?No 12:31:57 Patient diabetic? No. 12:32:00 Patient not . Patient has had hysterectomy. 12:32:02 Previous problem with sedation/anesthesia? No ? 12:32:04 Snore? Yes 12:32:07 Sleep apnea? No 12:32:09 Deviated septum? No 12:32:10 Opens mouth fully? Yes 12:32:11 Sticks out tongue? Yes 12:32:21 Airway obstruction? Yes PNUEMONIA RT. LOBE 12:32:25 Dentures? No ? 12:32:30 Pre procedure: right dorsailis pedis pulse Doppler 12:32:40 Lab results completed and on chart. 12:32:45 Stress Test: no; N/A ? 12:33:02 IV right antecubital D/C'd due to infiltration. 12:33:08 Right groin area was prepped with chlora-prep and draped in sterile fashion 12:33:09 Alarms reviewed by R. N. 12:33:10 Sharps counted by scrub and verified by R.N. 12:33:16 Use device set Femoral Dx 12:33:17 ACIST Syringe (44929) opened to sterile field. 12:33:17 Bag Decanter (2002S) opened to sterile field. 12:33:18 ACIST Hand Control (30897) opened to sterile field. 12:33:19 ACIST Manifold (54430) opened to sterile field. 12:33:20 Tegaderm 4 x 4 (1626W) opened to sterile field. 12:33:22 Medline Cath Pack ([id number]) opened to sterile field. 12:33:23 DIAGNOSTIC Multipack 5Fr catheter set (DI8808) opened to sterile field. 12:33:25 SHEATH 5FR [place] (ATT452) opened to sterile field. 12:33:25 EMERALD Guide Wire (736-091) opened to sterile field. 12:33:38 0.9% NaCl 100 ml/hr I.V. was administered by Shaye Richter RN; used for procedure; Verbal order read back and verified. 12:40:46 Vital chart was started 12:42:29 Baseline sample Acquired. 12:42:54 Rhythm: sinus rhythm 12:43:01 - 12:43:12 Is the patient allergic to Iodine/contrast media? Yes. 12:43:14 Was the patient premedicated? Yes 12:44:30 IV started by Shaye Richter RN inright antecubital with a 22 gauge IV catheter with 0.9% NaCl at KVO. 12:44:41 Physician arrived 12:44:42 --------ALL STOP TIME OUT------ 12:44:47 Final Timeout: patient, procedure, and site verified with staff and physician. All members of the team are in agreement. 12:44:53 Right groin site verified by team. 12:45:00 Fire Safety Assessment: A--An alcohol-based skin anteseptic being used preoperatively., C--Open oxygen or nitrous oxide is being used., D--An ESU, laser, or fiber-optic light is being used. 12:45:06 Physical assessment completed. ASA score P 2 - A patient with mild systemic disease as per Jones Coe MD. 12:45:12 Versed 2 mg I.V. was administered by Shaye Richter RN; for sedation; Verbal order read back and verified. 12:45:14 3b) 30-44 Moderately reduced kidney function. 12:45:19 Maximum allowable contrast dose (3.7 X eGFR X 0.75)88 ml. 12:45:26 Sedation plan: IV Moderate Sedation Medication:Versed, Fentanyl 12:45:36 Fentanyl 100 mcg I.V. was administered by Shaye Richter RN; for sedation; Verbal order read back and verified. 12:46:26 Zero performed for pressure channel P1 12:46:43 Procedure started. 12:47:03 Local anesthetic to right femoral artery with Lidocaine 2% by Jones Coe MD.INITIAL ACCESS ONLY 12:47:42 Patient pain scale 0/10 ?. 12:48:43 NEEDLE Merit 18G 9cm Percutaneous Entry ([id number]) opened to sterile field. 12:49:20 Versed 2 mg I.V. was administered by Shaye Richter RN; for sedation; Verbal order read back and verified. 12:49:49 A 5 Fr sheath was inserted into the Right Femoral artery 12:49:53 Fentanyl 50 mcg I.V. was administered by Shaye Richter RN; for sedation ; Verbal order read back and verified. 12:50:05 A MULTIPACK Pigtail 5 Fr catheter was advanced over the wire and used for LV Angiography. 12:50:12 LV gram done using MUÑOZ 12:50:20 EF : 55 % 12:50:25 Injector settings: Ml/sec: 10, Volume: 20, 12:50:28 Catheter removed. 12:50:35 A MULTIPACK JL 4.0 5Fr catheter was advanced over the wire and used for Left Coronary Angiography. 12:51:17 LCA angiography performed. 12:51:22 Injector settings: Ml/sec: 3, Volume: 6, 12:52:00 Catheter removed. 12:53:00 A MULTIPACK 3DRC 5Fr catheter was advanced over the wire and used for Procedure. 12:53:32 QUIÑONES to LAD angiography performed. 12:56:11 RCA angiography performed. 12:56:47 Oxygen 15 l/min NRB was administered by Shaye Richter RN; for low 02 sats; Verbal order read back and verified. 12:56:48 SVG to RCA angiography performed, THIS IS OCCLUDED. 12:57:20 Catheter removed. 12:59:09 EXOSEAL 5Fr (EX500) opened to sterile field. 12:59:25 Sheath removed intact; hemostasis achieved with Exoseal to the Right Femoral artery. 12:59:28 Narcan 0.4 mg I.V. was administered by Shaye Richter RN; used for procedure; Verbal order read back and verified. 12:59:28 Procedure ended.(Physican Out) 13:00:42 Contrast amount:Isovue 300 61ml. 13:01:11 Maximum allowable dose exceeded? No. 13:01:41 Fluoroscopy time 02.00 minutes. 13:01:52 Flurop Dose total: 690 13:01:52 Fluoroscopy dose: 690 mGy 13:02:01 Dose Area Product 05133 mGy/cm. 13:02:04 Sharps counted by scrub and verified by R.N. 13:02:07 Insertion/operative site no bleeding no hematoma. 13:02:14 Post-op/insertion site Right Femoral artery dressed using a 4 x 4 and Tegaderm. 13:02:18 Post right femoral artery:stable 13:02:21 Post Procedure Pulses reassessed and unchanged 13:02:27 Post-procedure physical assessment completed. ASA score P 2 - A patient with mild systemic disease as per Jones Coe MD. 13:02:31 Post procedure rhythm: unchanged. 13:02:41 Estimated blood loss: 5 ml 13:02:45 Post procedure instruction explained to patient.Patient verbalizes understanding. 13:02:47 Patient needs reinforcement of post procedure teaching. 13:03:09 Procedure type changed to Cath procedure, Diagnostic procedure, LHC, C w/Coronaries w/Grafts, Sedation Charges, Moderate Sedation up to 15 minutes 13:03:12 Procedure and supply charges have been captured, reviewed, submitted an d are correct. 13:04:25 Procedure Complication : No complications 13:04:30 Vital chart was stopped 13:04:40 [facility] Findings: MVD- will discuss options w/ pt 13:04:45 Operative report dictated upon procedure completion. 13:04:48 See physician's report for complete and final results. 13:04:52 Report given to [facility] II. 13:04:58 Patient transfered to Med II with Bed. 13:05:01 Procedure ended. 13:05:01 Full Disclosure recording stopped 13:06:04 End room use (Document Last) Device Usage Item Name Manufacture Quantity Catalog Hospital Part Current Minimal Lot# / Number Charge Number Stock Stock Serial# Code ACIST Acist 1 25041 517782 009651 266850 20 Syringe Medical (38351) Systems Inc Bag Decanter Microtek 1 2001S 904805 20772 266003 5 (2001S) Medical Inc. ACIST Hand Acist 1 42122 622792 748048 090274 5 Control Medical (92788) Systems Inc ACIST Acist 1 08789 665930 983799 064476 5 Manifold Medical (12592) Systems Inc Tegaderm 4 x 3M 1 1626W 929395 590697 464606 5 4 (1626W) Medline Cath Medline 1 [id number] 763739 30515 798087 5 Pack ([id number]) DIAGNOSTIC Cardinal 1 XY9108 978645 01545 892133 30 Multipack Health 5Fr catheter set (LG3856) SHEATH 5FR Terumo 1 IMM186 829918 168886 944181 5 [place] (SIL218) EMERALD Cardinal 1 181-099 489033 497758 696721 5 Guide Wire Health (883-436) NEEDLE Merit Merit 1 [id number] 196879 647746 140585 5 18G 9cm Medical Percutaneous Entry ([id number]) MULTIPACK Cardinal 1 111049 5 Pigtail 5 Fr Health catheter MULTIPACK JL Cardinal 1 [id number] 5 4.0 5Fr Health catheter MULTIPACK Cardinal 1 320140 5 3DRC 5Fr Health catheter EXOSEAL 5Fr Cardinal 1 EX500 422254 211539 920225 10 (EX500) Health Signature Audit [place] Stage Time Signature Unsigned Intra-Procedure 02/11/2019 Sakina 1:06:28 PM Sari CARVER(R) (CV) Intra-Procedure 02/11/2019 Shaye Richter 1:07:02 PM RN Intra-Procedure 02/11/2019 Jones Coe 1:08:53 PM Signatures Performing Physician : Signature : Jones Coe MD Date : Time : Monitor : Sakina Signature : Sari RT Date : Time : Nurse : Shaye Richter RN Signature : Date : Time : [facility] [address] [place] [address]
[2019-02-10 04:14] LABS: BASOPHILS 0.2 % (0-2); HEMATOCRIT 40.6 % (36.0-48.0); HEMOGLOBIN 12.5 g/dL (12-16); IMMATURE GRANULOCYTES 0.2 % (0-5); LYMPHOCYTES 32.8 % (15-50); MCH 25.2 pg (26.0-34.0); MCHC 30.8 g/dL (31.0-37.0); MCV 81.7 fL (80.0-100.0); MEAN PLATELET VOLUME 9.1 fL (7.4-10.4); MONOCYTES 8.5 % (2-11); NEUTROPHILS 55.3 % (40-80); PLATELET COUNT 188 10x3/uL (130-400); RBC 4.97 10x6/uL (4.00-5.40); RDW 15.1 % (11.5-14.5); WBC 8.6 10x3/uL (4.8-10.8)
[2019-02-10 04:17] LABS: CALC OSMOLALITY 283 mosm/kg (275-300); CALCIUM 9.3 mg/dL (8.5-10.1); CARBON DIOXIDE 24.9 mmol/L (21.0-32.0); CHLORIDE - SERUM 102 mmol/L (98-107); CREATININE - SERUM 1.2 mg/dL (0.6-1.3); GLUCOSE 184 mg/dL (74-106); POTASSIUM - SERUM 4.1 mmol/L (3.5-5.1); SODIUM 138 mmol/L (136-145); UREA NITROGEN 20 mg/dL (7-18); eGFR NON AFRICAN AMERICAN 48 mL/min (90-120)
[2019-02-10 04:19] LABS: INR 0.92 (0.85-1.17); PROTIME 11.9 SECONDS (11.6-15.0)
[2019-02-10 04:23] LABS: APTT 20.4 SECONDS (22.8-39.4)
[2019-02-10 04:31] LABS: ALBUMIN 3.5 g/dL (3.4-5.0); ALKALINE PHOSPHATASE 89 U/L (46-116); ALT (SGPT) 17 U/L (10-68); BILIRUBIN - TOTAL 0.62 mg/dL (0.2-1.3); CKMB 1.4 U/L (0.0-3.6); CREATINE KINASE 113 UL (21-215); MAGNESIUM - SERUM 1.6 mg/dL (1.8-2.4); PROTEIN - SERUM 7.4 g/dL (6.4-8.2); TROPONIN-I 0.024 ng/mL (0.000-0.060)
[2019-02-10 08:00] VITALS: BP 121/73
[2019-02-10] MEDS ORDERED: GLUCOPHAGE500 MG PO (08:08)
[2019-02-10] MEDS ORDERED: CRESTOR10 MG PO (08:10)
[2019-02-10] MEDS ORDERED: CINNAMON500 MG PO (08:11)
--- NOTE | 2019-02-10 08:17 | NUR ---
RECIVED FROM ER PER WC. TO ROOM 2124. ADMIT ASSESSMENT PER RN
[2019-02-10 08:29] LABS: D-DIMER-QUANTITATIVE 0.98 ug/mLFEU (0.20-0.54)
[2019-02-10 09:04] VITALS: BP 158/72; Ht 162.6 cm; Wt 127.3 kg
[2019-02-10 10:53] LABS: CKMB 9.2 U/L (0.0-3.6); CREATINE KINASE 140 UL (21-215)
[2019-02-10 11:36] VITALS: BP 97/62
--- NOTE | 2019-02-10 14:08 | CN ---
PATIENT NAME:MURPHY DAVID MEDICAL RECORD: [id number] : 53 LOCATION:. D.2124 ADMIT DATE: 02/10/19 ACCOUNT: [id number] CONSULTING PHYSICIAN: MANUEL VÁSQUEZ MD REFERRING PHYSICIAN: ANGEL ALEXANDER MD DATE OF CONSULTATION: 02/10/2019 ADMITTING DIAGNOSES: 1. Unstable angina. 2. Coronary artery disease. 3. Previous bypass surgery. 4. Previous multivessel percutaneous transluminal coronary angioplasty stent. 5. Hypertension. 6. Hyperlipidemia. 7. Noninsulin-dependent diabetes. 8. Pneumonia. 9. Shortness breath, dyspnea on exertion. HISTORY OF PRESENT ILLNESS: Mrs. David presents with increasing angina for the past 2 weeks, just like that of her previous angina. Last cardiac stent was October of 2017. It is a pressure-like sensation with the anterior chest that radiates to her jaw and her teeth, just like that of her previous angina, as well she has been more short of breath and she has had a cough with sputum production. Chest x-ray shows a right lower lobe pneumonia. She continues to have an escalation of the pain. She is having episodes of rest pain now at class IV anginal symptomatology. PHYSICAL EXAMINATION: CONSTITUTIONAL/GENERAL APPEARANCE: Well nourished, well developed, appears stated age. EYES: Lids and conjunctivae noninjected. No discharge. No pallor. ENT: Lips within normal limit. No cyanosis. No pallor. NECK: Carotid arteries, bilateral normal upstroke. No bruits. No thrills. No jugular venous pressure or distention. CERVICAL LYMPH NODES: Nontender. Nonenlarged. THYROID: Not enlarged. No nodules. CARDIOVASCULAR: Precordial exam, nondisplaced. No heaves or pericardial thrills. Rate and rhythm, regular. Heart sounds, normal S1, normal S2. No S3, no gallop, no rub. Systolic murmur, not heard. Diastolic murmur, not heard. RESPIRATORY: Respiratory effort, unlabored. Normal curvature. No thoracic deformity. No chest wall tenderness. Percussion, resonant. Auscultation, clear. No wheezes, no rales, no rhonchi. ABDOMEN: Soft, nondistended, nontender. No abdominal pain, no vomiting and normal appetite. MUSCULOSKELETAL: No joint tenderness, normal gait, normal tone. SKIN: Warm and dry. OVERALL IMPRESSION: Unstable angina, class IV in a patient with a past history of multivessel coronary artery disease, CABG, PTCA stent, hypertension, hyperlipidemia, diabetes, most likely she has recurrent hemodynamically significant disease. We will proceed with coronary angiography. Further care depends upon findings of the angiography. TRANSINT:[id number] Voice Confirmation ID: [id number] DOCUMENT ID: [id number] CONSULT REPORT [id number] MURPHY DAVID JEFFREY MD at 1408 CC: [id number] DICTATION DATE: 02/10/19824 TOPOGRAPHICAL FIELD ASSISTANT: 02/10/19 1011 ADM IN [place] [id number] [place] [id number]
[2019-02-10 15:53] VITALS: BP 111/70
[2019-02-10 16:38] LABS: CKMB 64.2 U/L (0.0-3.6); CREATINE KINASE 409 UL (21-215)
[2019-02-10 16:41] LABS: TROPONIN-I 3.847 ng/mL (0.000-0.060)
--- NOTE | 2019-02-10 18:16 | NUR ---
WITHOUT CHANGES OR DISTRESS NOTED AT THIS TIME.
[2019-02-10 20:00] VITALS: BP 122/72
[2019-02-10 23:05] LABS: CKMB 91.2 U/L (0.0-3.6)
[2019-02-10 23:09] LABS: CREATINE KINASE 597 UL (21-215)
[2019-02-10 23:10] LABS: TROPONIN-I 6.449 ng/mL (0.000-0.060)
[2019-02-11] VITALS (7 sets, daily range): BP systolic 99–135; BP diastolic 57–78
--- NOTE | 2019-02-11 00:23 | NUR ---
RESTING WITH EYES CLOSED, RESPERATIONS EVEN, NO S/S DISTRESS NOTED.
--- NOTE | 2019-02-11 05:31 | NUR ---
I have reviewed this patient and I concur with the Shift Assessment completed by the Licensed Practical Nurse today this shift.
[2019-02-11 05:37] LABS: BASOPHILS 0 % (0-2); EOSINOPHILS 0.1 % (0-7); HEMATOCRIT 40.2 % (36.0-48.0); HEMOGLOBIN 12.3 g/dL (12-16); IMMATURE GRANULOCYTES 0.2 % (0-5); LYMPHOCYTES 10.6 % (15-50); MCH 25.2 pg (26.0-34.0); MCHC 30.6 g/dL (31.0-37.0); MCV 82.2 fL (80.0-100.0); MEAN PLATELET VOLUME 9.2 fL (7.4-10.4); MONOCYTES 2.3 % (2-11); NEUTROPHILS 86.8 % (40-80); RBC 4.89 10x6/uL (4.00-5.40); WBC 9.2 10x3/uL (4.8-10.8)
[2019-02-11 05:55] LABS: ANION GAP 13.4 mmol/L (8-16); CALCIUM 8.7 mg/dL (8.5-10.1); CARBON DIOXIDE 27.5 mmol/L (21.0-32.0)
[2019-02-11 06:03] LABS: PLATELET COUNT 230 10x3/uL (130-400)
[2019-02-11 06:04] LABS: CREATININE - SERUM 1.7 mg/dL (0.6-1.3); POTASSIUM - SERUM 4.9 mmol/L (3.5-5.1)
--- NOTE | 2019-02-11 07:30 | NUR ---
ALERT AND ORIENTED. DENIES ANY NEEDS. TELEMERTY SHOWS SR 88. NPO FOR CATH. SL TO RIGHT FA. O2 AT 4 L/M PER NC. UP IN ROOM AB LALO. WILL MONITOR
--- NOTE | 2019-02-11 10:39 | NUR ---
I have reviewed this patient and I concur with the Shift Assessment completed by the Licensed Practical Nurse today this shift.
--- NOTE | 2019-02-11 14:30 | NUR ---
RIGHT GROIN SOFT WITH DRSG DRY AND INTACT. PPP. WILL MONITOR
--- NOTE | 2019-02-11 19:00 | NUR ---
EVENING ROUNDS COMPLETE. PT SITTING UP IN CHAIR, FAMILY AT BEDSIDE. AAOX4, NO SIGNS OF DISTRESS. PT DENIES ANY PAIN OR NEEDS AT THIS TIME. CL IN REACH, BED IN LOWEST POSITION.
[2019-02-12 04:00] VITALS: BP 98/62
--- NOTE | 2019-02-12 07:21 | NUR ---
REPORT RECEIVED. WILL CONTINUE WITH POC. PT CURRENTLY SITTING UP IN CHAIR. CALL LIGHT W/I REACH. RR EVEN AND UNLABORED ON RA. PREVIOUS PIV INFILTRATED. REMOVED PIV WITH CATHETER TIP FULLY INTACT. WARM CLOTH APPLIED TO INFILTRATED SITE. NO S/S OF DISTRESS NOTED. PT DENIES ANY NEEDS. WILL CTM.
[2019-02-12 08:40] LABS: HEMATOCRIT 38.8 % (36.0-48.0); HEMOGLOBIN 11.7 g/dL (12-16); MCH 25.3 pg (26.0-34.0); MCHC 30.2 g/dL (31.0-37.0); MCV 83.8 fL (80.0-100.0); MEAN PLATELET VOLUME 9.5 fL (7.4-10.4); PLATELET COUNT 205 10x3/uL (130-400); RBC 4.63 10x6/uL (4.00-5.40); RDW 15.6 % (11.5-14.5); WBC 8.2 10x3/uL (4.8-10.8)
[2019-02-12 08:49] LABS: ANION GAP 11.2 mmol/L (8-16); CALCIUM 8.5 mg/dL (8.5-10.1); CARBON DIOXIDE 27.3 mmol/L (21.0-32.0); CREATININE - SERUM 1.5 mg/dL (0.6-1.3); POTASSIUM - SERUM 4.5 mmol/L (3.5-5.1)
[2019-02-12 09:00] VITALS: BP 127/70
[2019-02-12] MEDS ORDERED: ZITHROMAX500 MG PO (12:30)
[2019-02-12] MEDS ORDERED: OMNICEF300 MG PO (12:30)
[2019-02-12 12:34] LABS: EOSINOPHILS 1 % (0-7); LYMPHOCYTES 26 % (15-50); MONOCYTES 9 % (2-11); NEUTROPHILS 64 % (40-80)
[2019-02-12 12:35] LABS: ANISOCYTOSIS OCC; PLATELET ESTIMATE NORMAL
[2019-02-12 13:53] VITALS: BP 108/55
--- NOTE | 2019-02-12 14:45 | NUR ---
PT DISCHARGED HOME VIA WHEELCHAIR WITH FAMILY. TELEMETRY REMOVED AND RETURNED. PT SIGNED PROPER DISCHARGE INSTRUCTIONS AND REMOVED ALL VALUABLES FROM THE ROOM.
--- NOTE | 2019-02-12 17:08 | MORECARE ---
CASE MANAGEMENT DISCHARGE SUMMARY PATIENT: MURPHY PRADHAN UNIT: [id number] ADM DATE: 02/10/19 AGE: 63 : [birth year] SEX: F ROOM/BED: D.3754 AUTHOR: DEX,DOC PHYSICIAN: REFERRING PHYSICIAN: ANGEL ALEXANDER MD DATE OF SERVICE: 02/12/19 Discharge Plan Patient Name: MURPHY PRADHAN Facility: [facility]:[place] : 1955 Planned Disposition: Home Anticipated Discharge Date: 02/12/19 Discharge Date: 02/12/2019 Expected LOS: 2 Initial Reviewer: [email or web address] Initial Review Date: 02/12/2019 Generated: 02/12/19 6:08 pm Comments DCP- Discharge Planning Updated by [email or web address]: Efren Brian on 02/12/19 4:[address] Patient Name: MURPHY PRADHAN Admission Status: ER Accout number: [id number] Admission Date: 02-10-2019 : 1955 Admission Diagnosis: Attending: ANGEL ALEXANDER Current LOS: 2 Anticipated DC Date: 02-12-2019 Planned Disposition: Home Primary Insurance: [place] [employer] [facility] Discharge Planning Comments: CM MET WITH PT IN ROOM TO DISCUSS DISCHARGE PLANNING AND NEEDS. PT REPORTS LIVING AT HOME INDEPENDENTLY WITH HER SPOUSE. PT HAS NO MEDICAL EQUIPMENT AND NO OUTSIDE SERVICES ASSISTING IN THE HOME. CM DISCUSSED AVAILABILITY OF HOME HEALTH, REHAB SERVICES AND MEDICAL EQUIPMENT. PT DENIES DISCHARGE NEEDS, REPORTS HER SPOUSE WILL PICK HER UP FOR DISCHARGE HOME. Legal Arbitrator: Efren Brian DCPIA - Discharge Planning Initial Assessment Updated by [email or web address]: Efren Brian on 02/12/19 5:04 pm * Is the patient Alert and Oriented? Yes * How many steps to enter\exit or inside your home? 2-O / 13-I * PCP DR. SANDERSON * Pharmacy [facility] * Preadmission Environment Home with Family * ADLs Independent * Equipment None * Other Equipment NO MEDICAL EQUIPMENT PROVIDER PREFERENCE * List name and contact numbers for known caregivers / representatives who currently or will assist patient after discharge: AMBER PRADHAN, SPOUSE, * Verbal permission to speak to the caregivers and representatives has been obtained from the patient. Yes * Community resources currently utilized None * Please name any agencies selected above. NONE * Additional services required to return to the preadmission environment? No * Can the patient safely return to the preadmission environment? Yes * Has this patient been hospitalized within the prior 30 days at any hospital? No Patient Name: MURPHY PRADHAN Page [phone] at 1708 All edits/amendments must be made on the electronic document DICTATION DATE: 02/12/191707 PLUMBING WAREHOUSE HELPER: YRN 02/12/191707 RPT#: [id number] DC DATE:02/12/19 STATUS: DIS IN [facility] [address] [place] [address] END OF REPORT
--- NOTE | 2019-02-17 10:41 | OP ---
PATIENT NAME: MURPHY PRADHAN MEDICAL RECORD: [id number] :[birth year] LOCATION:D.M2 D.2124 ADMISSION DATE:02/10/19 SURGEON: MANUEL VÁSQUEZ MD DATE OF OPERATION: 02/11/2019 PROCEDURES: 1. Left heart catheterization. 2. Selective coronary angiography. 3. Left ventriculogram. INDICATION: Angina, coronary artery disease, previous PTCA stent, previous bypass surgery. PROCEDURE IN DETAIL: After informed consent was obtained and after detailed explanation of risks, benefits as well as alternative therapies, the patient elected to proceed with angiogram and heart catheterization. The right femoral area was prepped and draped in normal sterile fashion. The right femoral artery was cannulated via modified Seldinger technique with placement of 5-Danish sheath. All catheters exchanged through this sheath. FINDINGS: Left ventriculogram was performed in normal standard 30-degree MUÑOZ view, reveals good cardiac wall motion, ejection fraction 55% to 60%. SELECTIVE CORONARY ANGIOGRAPHY: 1. Left main is with no significant angiographic disease. 2. Left anterior descending has mild irregularities, but no flow-limiting stenosis. 3. QUIÑONES to the distal LAD is widely patent. 4. Left circumflex has mild irregularities, but no flow-limiting stenosis. 5. Right coronary is totally occluded. 6. Vein graft to the right coronary is totally occluded. Distal right coronary fills via left to right collaterals that are well developed. OVERALL IMPRESSION: Total closure of the vein graft to the RCA as well as the lower [place] RCA. The distal RCA is collateralized, hence continue medical management of the coronary artery disease and cardiac risk factors. TRANSINT:[id number] Voice Confirmation ID: [id number] DOCUMENT ID: [id number] MANUEL VÁSQUEZ MD at 1041 CC: [id number] DICTATION DATE: 02/11/19 1302 ASSEMBLY ADJUSTER: 02/11/19 1511 DIS IN 02/12/19 [place] [id number] [place] [address]
--- NOTE | 2019-02-17 10:41 | EC ---
PATIENT:MURPHY PRADHAN DATE OF SERVICE: 02/10/19 SEX: F MEDICAL RECORD: [id number] DATE OF : [birth year] LOCATION:D. D.212 AGE OF PATIENT: 63 ADMISSION DATE: 02/10/19 REFERRING PHYSICIAN: INTERPRETING PHYSICIAN: MANUEL COE MD ECHOCARDIOGRAM REPORT ECHO CHARGES 4 ECHO COMPLETE Date: 02/10/19 CLINICAL DIAGNOSIS: SOB ECHOCARDIOGRAPHIC MEASUREMENTS (adult normal given) AC root (d.<3.7cm) 2.9 cm LV Septum d (<1.2 cm> 0.9 cm Valve Excursion 1.7 cm LV Septum (systole) 1.3 cm Left Atria (s.<4.0cm> 4.9 cm LVPW d(<1.2cm) 1.4 cm RV (d.<2.3cm) 3.7 cm LVPW (sytole) 1.8 cm LV diastole(<5.6CM) 6.3 cm MV E-F(>70mm/sec) cm LV systole 4.7 cm LVOT Diameter 1.9 cm MV exc.(>10mm) cm Est.ejection fraction (50-75%) % DOPPLER: LVIT cm/sec A 88 cm/sec E 97 cm/sec LA cm/sec RVSP 36.9 mmHg LVOT 102 cm/sec AOP1/2T m/s Asc. Ao 141 cm/sec RVOT 80 cm/sec RA cm/sec PA 93 cm/sec AV Gradient Peak 8.0 mmHg AV Mean 4.6 mmHg AV Area 2.3 cm MV Gradient Peak 5.0 mmHg MV Mean 3.5 mmHg MV Area cm COMMENTS: Supervisor Facepiece Line: Jos[facility] Gum Rolling Machine Tender: 1 Dr. oCe TAPE# PACS Pericardial Effusion N DATE OF SERVICE: FINDINGS: 1. Left ventricular chamber size is mildly dilated. Left ventricular systolic function is mildly reduced, overall ejection fraction in the 40% to 45% range. 2. Left atrium is enlarged at 4.9 cm. Right atrium and right ventricular chamber sizes are as well mildly dilated. 3. Valvular structures have normal structure and motion. 4. Doppler interrogation reveals mild mitral regurgitation, mild tricuspid regurgitation, no other valvular insufficiency or stenosis. Pulmonary systolic ECHOCARDIOGRAM REPORT [id number] MURPHY PRADHAN pressure is estimated at 37 mmHg. 5. No evidence of pericardial effusion or left ventricular thrombus. TRANSINT:[id number] Voice Confirmation ID: [id number] DOCUMENT ID: [id number] MANUEL COE MD at 1041 CC: [id number] DICTATION DATE: 02/15/19 163 FABRIC WORKER: 02/15/19 190 DIS IN 02/12/19 [facility] [address] [place] [id number]
== END 2019-02-12 14:47 | disposition home or self-care (01) | DRG 286 ==
LOC: D.ER 03:36 → D.M2 06:37
PROVIDERS: Family Medicine; Internal Medicine Interventional Cardiology; ADMIT Internal Medicine Nephrology; ATTEND Internal Medicine Nephrology
PROC: B2121ZZ Fluoroscopy of Single Coronary Artery Bypass Graft using Low Osmolar Contrast (ICD-10-PCS; 2019-02-11)
PROC: B2151ZZ Fluoroscopy of Left Heart using Low Osmolar Contrast (ICD-10-PCS; 2019-02-11)
PROC: 4A023N7 Measurement of Cardiac Sampling and Pressure, Left Heart, Percutaneous Approach (ICD-10-PCS; 2019-02-11)
PROC: B2111ZZ Fluoroscopy of Multiple Coronary Arteries using Low Osmolar Contrast (ICD-10-PCS; principal; 2019-02-11 12:00)
DX: I25.110 Atherosclerotic heart disease of native coronary artery with unstable angina pectoris (principal); J18.1 Lobar pneumonia, unspecified organism; N17.9 Acute kidney failure, unspecified; Z68.42 Body mass index [BMI] 45.0-49.9, adult; E83.42 Hypomagnesemia; E11.9 Type 2 diabetes mellitus without complications; I48.0 Paroxysmal atrial fibrillation; K21.9 Gastro-esophageal reflux disease without esophagitis; I10 Essential (primary) hypertension; E78.5 Hyperlipidemia, unspecified; E66.01 Morbid (severe) obesity due to excess calories

== ENCOUNTER → 2019-09-21 13:19 | Outpatient (CLI) | payer MEDICARE, BC ==
[2019-02-10 09:04] VITALS: BMI 48.1
[~2019-09-21 13:19] MED LIST changes: +CRESTOR10 MG PO; +OMNICEF300 MG PO; +ZITHROMAX500 MG PO
== END | disposition home or self-care (01) ==
LOC: D.HCCECHO 13:00
PROVIDERS: ATTEND Internal Medicine Cardiovascular Disease
DX: I25.10 Atherosclerotic heart disease of native coronary artery without angina pectoris (principal)